=== PATIENT | female | born 1970 | race Caucasian/White ===

== ENCOUNTER 2017-01-23 09:49 | Emergency (ER) | payer BC, OTHER, SELFPAY ==
[~2017-01-23] VITALS: Ht 172.7 cm; Wt 55.8 kg
[~2017-01-23 09:49] MED LIST: /MELO7TA PO; AMPI500C8 PO; BACITAB PO; CLIN300C OR; CLIN300C PO; CLINDAMYCIN IV; CLINDAMYCIN PO; IBUP600T26 OR; LORTTAB5 PO; MOTR200T4 PO; NICO21DI4 TD; PERC5TAB8 OR; PRED10TA2 OR; VICO5TAB16 PO
[2017-01-23] MEDS ORDERED: BUSP1TAB PO (09:59)
[2017-01-23] MEDS ORDERED: TYLE325T5 PO (09:59)
[2017-01-23] MEDS ORDERED: LORazepam 2 MG/ML VIAL (J2060) IV STA (11:01)
[2017-01-23] MEDS ORDERED: METOCLOPRAMIDE INJ 10MG/2ML VIAL (J2765) IV ONE (11:15)
[2017-01-23 13:19] VITALS: BP 113/71
== END 2017-01-23 13:26 | disposition home or self-care (01) ==
LOC: M ED 11:01
DX: F41.9 Anxiety disorder, unspecified (principal)
CPT/HCPCS: 96374; 96375; 99284; J2060; J2765

== ENCOUNTER 2017-08-05 06:57 | Emergency (ER) | payer BC, MEDICAID, OTHER, SELFPAY ==
[~2017-08-05] VITALS: Ht 172.7 cm; Wt 58.6 kg
[~2017-08-05 06:57] MED LIST changes: +BUSP1TAB PO; +TYLE325T5 PO
[2017-08-05] MEDS ORDERED: ONDANSETRON 4 MG ORAL DISINTEGRATING TAB (S0181) PO ONE (07:45)
--- NOTE | 2017-08-05 08:15 | REP ---
Noncontrast head CT: History: Headache and confusion. The patient on anticoagulation. Comparison study: December 02, 2006. Findings: Digital lateral manager marketing communication radiograph is unremarkable. Bone window settings demonstrate an intact bony calvarium. Visualized paranasal sinuses are clear. No intraorbital abnormality is seen. On soft tissue window settings, lateral, third, and fourth ventricles are normal in size and position. Edwards-white differentiation pattern is intact. There is no evidence of intracranial hemorrhage. No mass, infarct, extra-axial fluid collection or midline shift is seen. Impression: Unremarkable noncontrast head CT.. Signed by Richie Curtis MD 08/05/2017 08:06 A
[2017-08-05] MEDS ORDERED: LORazepam 1 MG TAB PO STA (08:18)
[2017-08-05] MEDS ORDERED: ACETAMINOPHEN 325 MG TAB PO ONE (08:30)
[2017-08-05 08:45] LABS: BASO % 0.3 % (0.0-1.0); EOS % 0.2 % (0.0-3.0); IMMATURE GRANULOCYTE % 0.5 % (0-0); LYMPH # 0.6 10^3/uL (1.5-4.5); MEAN CORPUSCULAR HGB CONC 34.2 g/dl (32.0-36.5); MEAN CORPUSCULAR VOLUME 99.5 fl (80.0-96.0); MONO # 0.6 10^3/uL (0.0-0.8); MONO % 9.5 % (0.0-5.0); NEUTROPHILS # 5.4 10^3/uL (1.8-7.7); NEUTROPHILS % 80.5 % (36.0-66.0); PLATELET COUNT, AUTOMATED 119 10^3/uL (150-450); RED CELL DISTRIBUTION WIDTH 12.1 % (11.5-14.5); WHITE BLOOD COUNT 6.7 10^3/uL (4.0-10.0)
[2017-08-05 09:11] LABS: ALBUMIN 3.3 GM/DL (3.2-5.2); ALKALINE PHOSPHATASE 133 U/L (45-117); ALT/SGPT 149 U/L (12-78); ANION GAP 8 MEQ/L (8-16); AST/SGOT 128 U/L (7-37); BILIRUBIN,DIRECT 0.2 MG/DL (0.0-0.2); BILIRUBIN,TOTAL 0.7 MG/DL (0.2-1.0); BLOOD UREA NITROGEN 4 MG/DL (7-18); CALCIUM LEVEL 8.5 MG/DL (8.5-10.1); CARBON DIOXIDE LEVEL 25 MEQ/L (21-32); CHLORIDE LEVEL 103 MEQ/L (98-107); CREATININE FOR GFR 0.48 MG/DL (0.55-1.02); GLOMERULAR FILTRATION RATE > 60.0 (>58); GLUCOSE, FASTING 93 MG/DL (70-105); POTASSIUM SERUM 4.2 MEQ/L (3.5-5.1); SODIUM LEVEL 136 MEQ/L (136-145); T UPTAKE 40 % (30-39); THYROXINE (T4) 6.3 UG/DL (4.5-12.0)
[2017-08-05 09:12] LABS: METHADONE URINE NEGATIVE (NEGATIVE)
--- NOTE | 2017-08-05 11:10 | REP ---
Right upper quadrant sonography: History: Increased liver function studies. Alcohol use. Comparison study: Comparison CT study September 13, 2013. Findings: Scanning through the right upper quadrant of the abdomen demonstrates a normal sized, thin-walled gallbladder without evidence of stone or polyp. Common bile duct is normal measuring 0.3 cm in greatest diameter. No focal liver lesion is seen. Liver size is normal. There is evidence of mild fatty infiltration diffusely. No pancreatic abnormality is observed. No right renal abnormality is seen. There is no evidence of ascites. The right kidney measures 11.7 x 3.5 x 5.3 cm. Impression: Mild fatty infiltration of the liver seen, otherwise negative right upper quadrant sonography. Signed by Richie Curtis MD 08/05/2017 11:01 A
[2017-08-05] MEDS ORDERED: ATIV1TAB10 PO (11:58)
[2017-08-05 12:18] VITALS: BP 133/82
== END 2017-08-05 12:19 | disposition home or self-care (01) ==
LOC: M ED 06:57
DX: F41.0 Panic disorder [episodic paroxysmal anxiety] (principal); K76.0 Fatty (change of) liver, not elsewhere classified; F10.20 Alcohol dependence, uncomplicated; Z88.1 Allergy status to other antibiotic agents; L23.1 Allergic contact dermatitis due to adhesives; F17.210 Nicotine dependence, cigarettes, uncomplicated

== ENCOUNTER → 2017-10-25 | Outpatient (CLI) | payer OTHER ==
[2017-10-25 14:41] LABS: BASO % 0.4 % (0.0-1.0); EOS # 0.1 10^3/uL (0.0-0.50); EOS % 2.5 % (0.0-3.0); HEMATOCRIT 45.3 % (36.0-47.0); HEMOGLOBIN 15.6 g/dl (12.0-16.0); IMMATURE GRANULOCYTE % 0.4 % (0-0); LYMPH % 35.3 % (24.0-44.0); MEAN CORPUSCULAR HEMOGLOBIN 34.3 pg (27.0-33.0); MEAN CORPUSCULAR HGB CONC 34.4 g/dl (32.0-36.5); MEAN CORPUSCULAR VOLUME 99.6 fl (80.0-96.0); MONO # 0.4 10^3/uL (0.0-0.8); MONO % 12.7 % (0.0-5.0); NEUTROPHILS # 1.4 10^3/uL (1.8-7.7); NEUTROPHILS % 48.7 % (36.0-66.0); PLATELET COUNT, AUTOMATED 121 10^3/uL (150-450); RED BLOOD COUNT 4.55 10^6/uL (4.00-5.40); RED CELL DISTRIBUTION WIDTH 11.9 % (11.5-14.5); WHITE BLOOD COUNT 2.8 10^3/uL (4.0-10.0)
[2017-10-25 15:21] LABS: ALBUMIN 3.3 GM/DL (3.2-5.2); ALBUMIN/GLOBULIN RATIO 0.67 (1.00-1.93); ALKALINE PHOSPHATASE 143 U/L (45-117); ALT/SGPT 265 U/L (12-78); ANION GAP 7 MEQ/L (8-16); AST/SGOT 336 U/L (7-37); BILIRUBIN,DIRECT 0.2 MG/DL (0.0-0.2); BILIRUBIN,TOTAL 0.4 MG/DL (0.2-1.0); BLOOD UREA NITROGEN 3 MG/DL (7-18); C REACTIVE PROTEIN QUANTITATIV < 0.30 MG/DL (0.00-0.30); CALCIUM LEVEL 8.6 MG/DL (8.5-10.1); CARBON DIOXIDE LEVEL 28 MEQ/L (21-32); CHLORIDE LEVEL 108 MEQ/L (98-107); GLOMERULAR FILTRATION RATE > 60.0 (>58); GLUCOSE, FASTING 85 MG/DL (70-105); POTASSIUM SERUM 3.9 MEQ/L (3.5-5.1); SODIUM LEVEL 143 MEQ/L (136-145); TOTAL PROTEIN 8.2 GM/DL (6.4-8.2)
[2017-10-26 14:11] LABS: ANTINUCLEAR ANTIBODIES DIRECT Negative (Negative)
[2017-10-26 16:48] LABS: FREE T4 0.88 NG/DL (0.76-1.46)
[2017-10-27 09:46] LABS: HEPATITIS B SURFACE ANTIGEN NEGATIVE (NEGATIVE)
[2017-10-27 09:54] LABS: HEPATITIS B SURFACE ANTIBODY NEGATIVE (POSITIVE)
[2017-10-27 10:12] LABS: HEPATITIS C VIRUS ABY INDEX 0.2 INDEX (<0.8)
[2017-10-27 10:14] LABS: HEPATITIS A ANTIBODY IGM NEGATIVE (NEGATIVE)
[2017-11-02 11:01] LABS: FIBROSPECT1 SEE SEPARATE REPORT
== END ==
LOC: M LAB 14:02
DX: R94.5 Abnormal results of liver function studies (principal)
CPT/HCPCS: 82248

== ENCOUNTER → 2017-12-08 | Outpatient (CLI) | payer OTHER ==
[2017-12-08 15:12] LABS: BASO % 0.3 % (0.0-1.0); EOS % 0.8 % (0.0-3.0); HEMATOCRIT 45.7 % (36.0-47.0); HEMOGLOBIN 15.9 g/dl (12.0-16.0); IMMATURE GRANULOCYTE % 0.3 % (0-3.0); LYMPH # 0.8 10^3/uL (1.5-4.5); LYMPH % 22.1 % (24.0-44.0); MEAN CORPUSCULAR HEMOGLOBIN 33.9 pg (27.0-33.0); MEAN CORPUSCULAR HGB CONC 34.8 g/dl (32.0-36.5); MEAN CORPUSCULAR VOLUME 97.4 fl (80.0-96.0); MONO # 0.5 10^3/uL (0.0-0.8); MONO % 13.7 % (0.0-5.0); NEUTROPHILS # 2.4 10^3/uL (1.8-7.7); NEUTROPHILS % 62.8 % (36.0-66.0); PLATELET COUNT, AUTOMATED 141 10^3/uL (150-450); RED BLOOD COUNT 4.69 10^6/uL (4.00-5.40); RED CELL DISTRIBUTION WIDTH 11.7 % (11.5-14.5); WHITE BLOOD COUNT 3.8 10^3/uL (4.0-10.0)
[2017-12-08 15:22] LABS: INR 0.93; PARTIAL THROMBOPLASTIN TIME 36.1 SECONDS (26.8-37.9); PROTHROMBIN TIME 12.5 SECONDS (12.4-14.5)
[2017-12-08 15:39] LABS: ALBUMIN 3.7 GM/DL (3.2-5.2); ALBUMIN/GLOBULIN RATIO 0.76 (1.00-1.93); ALKALINE PHOSPHATASE 118 U/L (45-117); ALT/SGPT 62 U/L (12-78); ANION GAP 5 MEQ/L (8-16); AST/SGOT 64 U/L (7-37); BILIRUBIN,TOTAL 0.7 MG/DL (0.2-1.0); BLOOD UREA NITROGEN 6 MG/DL (7-18); CALCIUM LEVEL 8.9 MG/DL (8.5-10.1); CARBON DIOXIDE LEVEL 32 MEQ/L (21-32); CHLORIDE LEVEL 99 MEQ/L (98-107); CREATININE FOR GFR 0.56 MG/DL (0.55-1.30); FERRITIN 354 NG/ML (8-252); GLOMERULAR FILTRATION RATE > 60.0 (>58); GLUCOSE, FASTING 67 MG/DL (70-100); IRON (FE) 184 UG/DL (50-170); PERCENT SATURATION 66.2 % (13.2-45.0); POTASSIUM SERUM 4.4 MEQ/L (3.5-5.1); SODIUM LEVEL 136 MEQ/L (136-145); TOTAL IRON BINDING CAPACITY 278 UG/DL (250-450); TOTAL PROTEIN 8.6 GM/DL (6.4-8.2)
[2017-12-10 00:07] LABS: ANTI-MITOCHONDRIAL ANTIBODY 1.6 Units (0.0-20.0)
== END ==
LOC: M LAB 14:18
DX: R94.5 Abnormal results of liver function studies (principal)
CPT/HCPCS: 83550

== ENCOUNTER → 2017-12-26 | Outpatient (CLI) | payer OTHER ==
[~2017-12-26] MED LIST changes: -/MELO7TA PO; -AMPI500C8 PO; -BACITAB PO; -BUSP1TAB PO; -CLIN300C OR; -CLIN300C PO; -CLINDAMYCIN IV; -CLINDAMYCIN PO; -IBUP600T26 OR; +LIDOCAINE 1% MDV 20ML VIAL As Ordered; -LORTTAB5 PO; -MOTR200T4 PO; -NICO21DI4 TD; -PERC5TAB8 OR; -PRED10TA2 OR; -TYLE325T5 PO; -VICO5TAB16 PO
== END ==
LOC: M RADPRO 09:28
DX: R94.5 Abnormal results of liver function studies (principal); K76.0 Fatty (change of) liver, not elsewhere classified; K75.89 Other specified inflammatory liver diseases; Z88.1 Allergy status to other antibiotic agents; Z91.048 Other nonmedicinal substance allergy status; Z79.899 Other long term (current) drug therapy
CPT/HCPCS: 47000

== ENCOUNTER 2018-01-31 10:28 | Emergency (ER) | payer OTHER, MEDICAID ==
[2018-01-31] MEDS: PERCOCET 5MG/325MG TAB PO (10:54)
== END 2018-01-31 11:52 | disposition home or self-care (01) ==
LOC: M ED 10:28
DX: S22.32XA Fracture of one rib, left side, initial encounter for closed fracture (principal); W01.10XA Fall on same level from slipping, tripping and stumbling with subsequent striking against unspecified object, initial encounter; Y92.099 Unspecified place in other non-institutional residence as the place of occurrence of the external cause; Y93.02 Activity, running; Y99.9 Unspecified external cause status; Z87.81 Personal history of (healed) traumatic fracture; F41.9 Anxiety disorder, unspecified; F17.200 Nicotine dependence, unspecified, uncomplicated; Z79.899 Other long term (current) drug therapy; Z88.8 Allergy status to other drugs, medicaments and biological substances; Z91.89 Other specified personal risk factors, not elsewhere classified
CPT/HCPCS: 71101

== ENCOUNTER → 2018-07-13 | Outpatient (CLI) | payer OTHER ==
[2018-07-13 08:37] LABS: BASO % 0.4 % (0.0-1.0); EOS # 0.1 10^3/uL (0.0-0.50); HEMOGLOBIN 13.9 g/dl (12.0-15.5); IMMATURE GRANULOCYTE % 0.4 % (0-3.0); LYMPH # 0.4 10^3/uL (1.5-4.5); LYMPH % 17.9 % (24.0-44.0); MEAN CORPUSCULAR HEMOGLOBIN 33.2 pg (27.0-33.0); MEAN CORPUSCULAR HGB CONC 33.9 g/dl (32.0-36.5); MEAN CORPUSCULAR VOLUME 97.9 fl (80.0-96.0); MONO # 0.3 10^3/uL (0.0-0.8); MONO % 14.8 % (0.0-5.0); NEUTROPHILS # 1.4 10^3/uL (1.8-7.7); NEUTROPHILS % 62.5 % (36.0-66.0); PLATELET COUNT, AUTOMATED 132 10^3/uL (150-450); RED BLOOD COUNT 4.19 10^6/uL (4.00-5.40); RED CELL DISTRIBUTION WIDTH 12.1 % (11.5-14.5); WHITE BLOOD COUNT 2.2 10^3/uL (4.0-10.0)
[2018-07-13 08:58] LABS: ALBUMIN 3.1 GM/DL (3.2-5.2); ALBUMIN/GLOBULIN RATIO 0.74 (1.00-1.93); ALKALINE PHOSPHATASE 78 U/L (45-117); ALT/SGPT 27 U/L (12-78); ANION GAP 5 MEQ/L (8-16); AST/SGOT 26 U/L (7-37); BILIRUBIN,TOTAL 0.4 MG/DL (0.2-1.0); BLOOD UREA NITROGEN 7 MG/DL (7-18); CALCIUM LEVEL 8.9 MG/DL (8.5-10.1); CARBON DIOXIDE LEVEL 30 MEQ/L (21-32); CHLORIDE LEVEL 104 MEQ/L (98-107); CREATININE FOR GFR 0.68 MG/DL (0.55-1.30); GLOMERULAR FILTRATION RATE > 60.0 (>58); GLUCOSE, FASTING 75 MG/DL (70-100); POTASSIUM SERUM 4.7 MEQ/L (3.5-5.1); SODIUM LEVEL 139 MEQ/L (136-145); TOTAL PROTEIN 7.3 GM/DL (6.4-8.2)
== END ==
LOC: M RAD 08:03
DX: K75.81 Nonalcoholic steatohepatitis (NASH) (principal); K82.4 Cholesterolosis of gallbladder
CPT/HCPCS: 76705

== ENCOUNTER → 2018-08-20 | Outpatient (CLI) | payer OTHER ==
[2018-08-20 14:48] LABS: APPEARANCE, URINE HAZY (CLEAR); BACTERIA, URINE AUTO NEGATIVE (NEGATIVE); BILIRUBIN, URINE AUTO NEGATIVE (NEGATIVE); BLOOD, URINE BLOOD NEGATIVE (NEGATIVE); COLOR, URINE YELLOW (YELLOW); EOS % 1.5 % (0.0-3.0); GLUCOSE, URINE (UA) AUTO NEGATIVE (NEGATIVE); HEMATOCRIT 42.1 % (36.0-47.0); HEMOGLOBIN 14.4 g/dl (12.0-15.5); IMMATURE GRANULOCYTE % 0.7 % (0-3.0); KETONE, URINE AUTO NEGATIVE (NEGATIVE); LEUKOCYTE ESTERASE, URINE AUTO NEGATIVE (NEGATIVE); LYMPH # 0.4 10^3/uL (1.5-4.5); LYMPH % 32.6 % (24.0-44.0); MEAN CORPUSCULAR HEMOGLOBIN 34.3 pg (27.0-33.0); MEAN CORPUSCULAR HGB CONC 34.2 g/dl (32.0-36.5); MEAN CORPUSCULAR VOLUME 100.2 fl (80.0-96.0); MONO # 0.2 10^3/uL (0.0-0.8); MONO % 16.3 % (0.0-5.0); MUCUS, URINE SMALL (NEGATIVE); NEUTROPHILS % 48.9 % (36.0-66.0); NITRITE, URINE AUTO NEGATIVE (NEGATIVE); PROTEIN, URINE AUTO NEGATIVE (NEGATIVE); RBC, URINE AUTO 0 /HPF (0-3); RED CELL DISTRIBUTION WIDTH 13.4 % (11.5-14.5); SPECIFIC GRAVITY URINE AUTO 1.009 (1.002-1.035); SQUAMOUS EPITHELIAL CELL UR AU 6 /HPF (0-6); UROBILINOGEN, URINE AUTO 0.2 mg/dL (0.0-2.0); WBC, URINE AUTO 2 /HPF (0-3)
[2018-08-20 14:57] LABS: IMMATURE PLATELET FRACTION % 6.3 % (0.0-9.6); NEUTROPHILS # 0.7 10^3/uL (1.8-7.7); PLATELET COUNT, AUTOMATED 91 10^3/uL (150-450); POS COUNT POS FLAG; POSITIVE DIFF POS FLAG; REASON FOR REVIEW WBC/LEUKEMIA/BLAST; SLIDE REVIEW Report; SOURCE PERIPHERAL SMEAR; WHITE BLOOD COUNT 1.4 10^3/uL (4.0-10.0)
[2018-08-20 15:05] LABS: ERYTHROCYTE SEDIMENTATION RATE 29 mm/hr (0-20)
[2018-08-20 15:16] LABS: C REACTIVE PROTEIN QUANTITATIV < 0.30 MG/DL (0.00-0.30); FERRITIN 344 NG/ML (8-252); FREE T3 2.5 PG/ML (2.2-4.0); FREE T4 0.77 NG/DL (0.76-1.46)
[2018-08-20 15:16] LABS: IRON (FE) 151 UG/DL (50-170)
[2018-08-20 15:18] LABS: FOLATE 8.6 NG/ML (>5.4); VITAMIN B12 LEVEL 482 PG/ML (247-911)
== END ==
LOC: M LAB 11:52
DX: R63.4 Abnormal weight loss (principal); D72.9 Disorder of white blood cells, unspecified; Z13.0 Encounter for screening for diseases of the blood and blood-forming organs and certain disorders involving the immune mechanism
CPT/HCPCS: 82746

== ENCOUNTER → 2018-08-29 | Outpatient (CLI) | payer OTHER | LOC: M RAD 07:41 | DX: F17.200 Nicotine dependence, unspecified, uncomplicated (principal); R63.4 Abnormal weight loss; K76.0 Fatty (change of) liver, not elsewhere classified; K82.4 Cholesterolosis of gallbladder | CPT/HCPCS: 71046 ==

== ENCOUNTER → 2018-09-19 | Outpatient (CLI) | payer OTHER | LOC: M LAB 12:33 | DX: D72.819 Decreased white blood cell count, unspecified (principal); D69.6 Thrombocytopenia, unspecified ==

== ENCOUNTER → 2018-09-20 | Outpatient (REF) | payer OTHER ==
[2018-09-20 16:09] LABS: ALBUMIN 3.3 GM/DL (3.2-5.2); ALBUMIN/GLOBULIN RATIO 0.79 (1.00-1.93); ALKALINE PHOSPHATASE 123 U/L (45-117); ALT/SGPT 147 U/L (12-78); ANION GAP 8 MEQ/L (8-16); AST/SGOT 180 U/L (7-37); BILIRUBIN,TOTAL 0.7 MG/DL (0.2-1.0); BLOOD UREA NITROGEN 5 MG/DL (7-18); CALCIUM LEVEL 8.1 MG/DL (8.5-10.1); CARBON DIOXIDE LEVEL 27 MEQ/L (21-32); CHLORIDE LEVEL 102 MEQ/L (98-107); CREATININE FOR GFR 0.51 MG/DL (0.55-1.30); GLOMERULAR FILTRATION RATE > 60.0 (>58); GLUCOSE, FASTING 80 MG/DL (70-100); POTASSIUM SERUM 3.6 MEQ/L (3.5-5.1); SODIUM LEVEL 137 MEQ/L (136-145); TOTAL PROTEIN 7.5 GM/DL (6.4-8.2)
== END ==
LOC: M SFHCPLAZ 13:15
DX: B20 Human immunodeficiency virus [HIV] disease (principal)
CPT/HCPCS: 80053

== ENCOUNTER → 2018-09-24 | Outpatient (REF) | payer OTHER ==
[~2018-09-24] MED LIST changes: +/MELO7TA PO; +AMBI5TAB PO; +AMPI500C8 PO; +ATIV1TAB10 PO; +ATIV1TAB7 PO; +BACITAB PO; +BUSP1TAB PO; +CELE20TA PO; +CLIN300C OR; +CLIN300C PO; +CLINDAMYCIN IV; +CLINDAMYCIN PO; +IBUP600T26 OR; -LIDOCAINE 1% MDV 20ML VIAL As Ordered; +LORA10CA PO; +LORTTAB5 PO; +MOTR200T4 PO; +NICO21DI4 TD; +OXYC1TAB23 PO; +PERC5TAB8 OR; +PRED10TA2 OR; +TOPI50TA9 PO; +TYLE325T5 PO; +VICO5TAB16 PO
[2018-09-24 18:37] LABS: APPEARANCE, URINE HAZY (CLEAR); BACTERIA, URINE AUTO NEGATIVE (NEGATIVE); BILIRUBIN, URINE AUTO NEGATIVE (NEGATIVE); BLOOD, URINE BLOOD NEGATIVE (NEGATIVE); COLOR, URINE YELLOW (YELLOW); GLUCOSE, URINE (UA) AUTO NEGATIVE (NEGATIVE); KETONE, URINE AUTO NEGATIVE (NEGATIVE); LEUKOCYTE ESTERASE, URINE AUTO NEGATIVE (NEGATIVE); NITRITE, URINE AUTO NEGATIVE (NEGATIVE); PROTEIN, URINE AUTO NEGATIVE (NEGATIVE); RBC, URINE AUTO 0 /HPF (0-3); SPECIFIC GRAVITY URINE AUTO 1.001 (1.002-1.035); SQUAMOUS EPITHELIAL CELL UR AU 2 /HPF (0-6); UROBILINOGEN, URINE AUTO 0.2 mg/dL (0.0-2.0); WBC, URINE AUTO 0 /HPF (0-3)
== END ==
LOC: M SFHCPLAZ 15:54
PROVIDERS: ATTEND Internal Medicine Infectious Disease
DX: B20 Human immunodeficiency virus [HIV] disease (principal)

== ENCOUNTER → 2018-10-18 | Outpatient (REF) | payer OTHER ==
[2018-10-18 16:06] LABS: ALBUMIN 3.6 GM/DL (3.2-5.2); ALT/SGPT 42 U/L (12-78); BILIRUBIN,TOTAL 0.5 MG/DL (0.2-1.0); BLOOD UREA NITROGEN 5 MG/DL (7-18); CARBON DIOXIDE LEVEL 30 MEQ/L (21-32); CHLORIDE LEVEL 103 MEQ/L (98-107); CREATININE FOR GFR 0.76 MG/DL (0.55-1.30); GLOMERULAR FILTRATION RATE > 60.0 (>58); GLUCOSE, FASTING 79 MG/DL (70-100); POTASSIUM SERUM 4.3 MEQ/L (3.5-5.1); SODIUM LEVEL 136 MEQ/L (136-145); TOTAL PROTEIN 7.6 GM/DL (6.4-8.2)
[2018-10-18 16:14] LABS: PROLACTIN 4.1 NG/ML
[2018-10-24 00:09] LABS: % CD8 Pos Lymph 70.6 % (12.0-35.5); %CD4 Pos Lymphs 13.9 % (30.8-58.5); ABS Lymphs 0.8 x10E3/uL (0.7-3.1); ABS Monocytes 0.3 x10E3/uL (0.1-0.9); ABS Neutophils 1.8 x10E3/uL (1.4-7.0); Abs CD4 Helper 111 /uL (359-1519); Abs CD8 Suppres 565 /uL (109-897); CRYPTOCOCCUS ANTIGEN SER Negative (Negative); Eosinophils 1 % (Not Estab.); HCT 43.4 % (34.0-46.6); HGB 14.6 g/dL (11.1-15.9); HISTOPLASMA GAL'MANNAN AG UR <0.5 (<0.5 ng/mL); HIV-1 RNA PCR QUANT 2 LC550285 150 copies/mL (.); HIV-1 RNA PCR QUANT 3 LC550285 2.176 (.); Immature Grans 0 % (Not Estab.); Lymphocytes 26 % (Not Estab.); MCH 36.1 pg (26.6-33.0); MCHC 33.6 g/dL (31.5-35.7); MCV 107 fL (79-97); Monocytes 9 % (Not Estab.); Neutrophils 64 % (Not Estab.); Platelets 231 x10E3/uL (150-379); RBC 4.04 x10E6/uL (3.77-5.28); WBC 2.9 x10E3/uL (3.4-10.8)
== END ==
LOC: M SFHCPLAZ 13:17
PROVIDERS: ATTEND Internal Medicine Infectious Disease
DX: R61 Generalized hyperhidrosis (principal); B20 Human immunodeficiency virus [HIV] disease; Z12.31 Encounter for screening mammogram for malignant neoplasm of breast

== ENCOUNTER → 2018-11-14 | Outpatient (CLI) | payer OTHER, MEDICAID ==
--- NOTE | 2018-11-15 03:43 | REP ---
Clinical: High risk factors/nicotine dependence with night sweats . Comparison: 08/29/2018 . Technique: PA and lateral. Findings: The mediastinum and cardiac silhouette are normal. The lung hamilton are clear and without acute consolidation, effusion, or pneumothorax. The skeletal structures are intact and normal. Impression: 1. No acute cardiopulmonary process. Electronically Signed by Rob Ellsworth MD 11/15/2018 03:35 A
== END ==
LOC: M LRY 11:48
PROVIDERS: ATTEND Internal Medicine Infectious Disease
DX: R61 Generalized hyperhidrosis (principal); F17.210 Nicotine dependence, cigarettes, uncomplicated

== ENCOUNTER → 2018-11-22 | Outpatient (REF) | payer OTHER ==
[2018-11-22 16:54] LABS: ALBUMIN 3.8 GM/DL (3.2-5.2); ALT/SGPT 39 U/L (12-78); BILIRUBIN,TOTAL 0.5 MG/DL (0.2-1.0); BLOOD UREA NITROGEN 8 MG/DL (7-18); CARBON DIOXIDE LEVEL 29 MEQ/L (21-32); CHLORIDE LEVEL 99 MEQ/L (98-107); CREATININE FOR GFR 0.73 MG/DL (0.55-1.30); GLOMERULAR FILTRATION RATE > 60.0 (>58); GLUCOSE, FASTING 88 MG/DL (70-100); POTASSIUM SERUM 4.3 MEQ/L (3.5-5.1); SODIUM LEVEL 135 MEQ/L (136-145); TOTAL PROTEIN 7.6 GM/DL (6.4-8.2)
[2018-11-28 00:07] LABS: % CD8 Pos Lymph 78.5 % (12.0-35.5); %CD4 Pos Lymphs 10.6 % (30.8-58.5); ABS Eosinophils 0.1 x10E3/uL (0.0-0.4); ABS Lymphs 1.2 x10E3/uL (0.7-3.1); ABS Monocytes 0.4 x10E3/uL (0.1-0.9); ABS Neutophils 1.4 x10E3/uL (1.4-7.0); Abs CD4 Helper 127 /uL (359-1519); Abs CD8 Suppres 942 /uL (109-897); CD4/CD8 Ratio 0.14 (0.92-3.72); Eosinophils 2 % (Not Estab.); HCT 44.2 % (34.0-46.6); HGB 15.2 g/dL (11.1-15.9); HIV-1 RNA PCR QUANT 2 LC550285 70 copies/mL (.); HIV-1 RNA PCR QUANT 3 LC550285 1.845 (.); Immature Grans 0 % (Not Estab.); Lymphocytes 38 % (Not Estab.); MCHC 34.4 g/dL (31.5-35.7); MCV 105 fL (79-97); Monocytes 12 % (Not Estab.); Neutrophils 47 % (Not Estab.); Platelets 204 x10E3/uL (150-379); RBC 4.22 x10E6/uL (3.77-5.28); RDW 12.5 % (12.3-15.4); WBC 3.1 x10E3/uL (3.4-10.8)
== END ==
LOC: M SFHCPLAZ 13:25
PROVIDERS: ATTEND Internal Medicine Infectious Disease
DX: B20 Human immunodeficiency virus [HIV] disease (principal)

== ENCOUNTER → 2019-01-11 | Outpatient (CLI) | payer OTHER, MEDICAID ==
[~2019-01-11] MED LIST changes: -/MELO7TA PO; +MOBI4TAB PO
[2019-01-11 12:47] LABS: BASO % 0.4 % (0.0-1.0); EOS # 0.1 10^3/uL (0.0-0.50); EOS % 1.4 % (0.0-3.0); HEMOGLOBIN 14.1 g/dl (12.0-15.5); LYMPH # 1.3 10^3/uL (1.5-4.5); LYMPH % 26.1 % (24.0-44.0); MEAN CORPUSCULAR HEMOGLOBIN 35.4 pg (27.0-33.0); MEAN CORPUSCULAR HGB CONC 33.6 g/dl (32.0-36.5); MEAN CORPUSCULAR VOLUME 105.5 fl (80.0-96.0); MONO # 0.5 10^3/uL (0.0-0.8); MONO % 9.8 % (0.0-5.0); NEUTROPHILS # 3.1 10^3/uL (1.8-7.7); NEUTROPHILS % 61.9 % (36.0-66.0); PLATELET COUNT, AUTOMATED 155 10^3/uL (150-450); RED BLOOD COUNT 3.98 10^6/uL (4.00-5.40)
[2019-01-11 13:31] LABS: ALBUMIN 3.5 GM/DL (3.2-5.2); ALT/SGPT 36 U/L (12-78); BILIRUBIN,TOTAL 0.6 MG/DL (0.2-1.0); BLOOD UREA NITROGEN 5 MG/DL (7-18); CALCIUM LEVEL 8.4 MG/DL (8.5-10.1); CARBON DIOXIDE LEVEL 25 MEQ/L (21-32); CHLORIDE LEVEL 105 MEQ/L (98-107); CREATININE FOR GFR 0.58 MG/DL (0.55-1.30); GLOMERULAR FILTRATION RATE > 60.0 (>58); GLUCOSE, FASTING 70 MG/DL (70-100); POTASSIUM SERUM 3.8 MEQ/L (3.5-5.1); SODIUM LEVEL 137 MEQ/L (136-145); TOTAL PROTEIN 6.8 GM/DL (6.4-8.2)
== END ==
LOC: M LAB 11:22
PROVIDERS: ATTEND Internal Medicine Gastroenterology
DX: K75.81 Nonalcoholic steatohepatitis (NASH) (principal)

== ENCOUNTER → 2019-01-14 | Outpatient (CLI) | payer OTHER ==
--- NOTE | 2019-01-14 08:50 | REP ---
Abdominal right upper quadrant ultrasound for nonalcoholic hepato steatosis: There is no cholelithiasis, gallbladder wall thickening or pericholecystic fluid. There is no intrahepatic or extrahepatic biliary duct dilatation. The common biliary duct measures up to 4.9 mm in diameter. The hepatic parenchyma is homogeneous and otherwise unremarkable. No evidence of increased hepatic parenchymal echogenicity. There are no hepatic masses. The visualized hepatic parenchyma is unremarkable. There is no right renal calculus, hydronephrosis, mass or cyst. The right kidney measures 9.9 x 4.1 x 4.7 cm and is normal size. There is no right upper quadrant abdominal ascites. Impression: Essentially negative abdominal right upper quadrant ultrasound. Electronically Signed by Roldan Camacho MD 01/14/2019 08:41 A
== END ==
LOC: M RAD 07:33
PROVIDERS: ATTEND Internal Medicine Gastroenterology
DX: K75.81 Nonalcoholic steatohepatitis (NASH) (principal)

== ENCOUNTER → 2019-02-12 | Outpatient (REF) | payer OTHER ==
[2019-02-12 16:57] LABS: ALBUMIN 3.9 GM/DL (3.2-5.2); ALT/SGPT 20 U/L (12-78); BILIRUBIN,TOTAL 0.5 MG/DL (0.2-1.0); BLOOD UREA NITROGEN 5 MG/DL (7-18); CARBON DIOXIDE LEVEL 28 MEQ/L (21-32); CHLORIDE LEVEL 103 MEQ/L (98-107); CREATININE FOR GFR 0.69 MG/DL (0.55-1.30); GLOMERULAR FILTRATION RATE > 60.0 (>58); GLUCOSE, FASTING 83 MG/DL (70-100); SODIUM LEVEL 136 MEQ/L (136-145); TOTAL PROTEIN 7.4 GM/DL (6.4-8.2)
[2019-02-14 14:27] LABS: % CD8 Pos Lymph 77.5 % (12.0-35.5); %CD4 Pos Lymphs 10.5 % (30.8-58.5); ABS Eosinophils 0.1 x10E3/uL (0.0-0.4); ABS Lymphs 1.3 x10E3/uL (0.7-3.1); ABS Monocytes 0.4 x10E3/uL (0.1-0.9); ABS Neutophils 3.9 x10E3/uL (1.4-7.0); Abs CD4 Helper 137 /uL (359-1519); Abs CD8 Suppres 1008 /uL (109-897); CD4/CD8 Ratio 0.14 (0.92-3.72); Eosinophils 1 % (Not Estab.); HCT 41.8 % (34.0-46.6); HGB 14.1 g/dL (11.1-15.9); Immature Grans 0 % (Not Estab.); Lymphocytes 23 % (Not Estab.); MCH 35.8 pg (26.6-33.0); MCHC 33.7 g/dL (31.5-35.7); MCV 106 fL (79-97); Monocytes 6 % (Not Estab.); Neutrophils 70 % (Not Estab.); Platelets 254 x10E3/uL (150-379); RBC 3.94 x10E6/uL (3.77-5.28); RDW 13.2 % (12.3-15.4); WBC 5.7 x10E3/uL (3.4-10.8)
[2019-02-15 18:47] LABS: HIV-1 RNA PCR QUANT 2 LC550285 <20 copies/mL (.)
== END ==
LOC: M SFHCPLAZ 13:49
PROVIDERS: ATTEND Internal Medicine Infectious Disease
DX: B20 Human immunodeficiency virus [HIV] disease (principal)

== ENCOUNTER → 2019-03-01 | Outpatient (CLI) | payer OTHER, MEDICAID ==
--- NOTE | 2019-03-01 12:59 | REP ---
Clinical: Neck pain. Technique: AP, lateral, flexion/extension, bilateral oblique, and open-mouth views of the cervical spine. Findings: Examination appears normal for age. No significant spondylosis is appreciated. Alignment and lordosis maintained. Oblique views demonstrate patent neural foramen. Open mouth view demonstrates normal C1-C2 articulation and odontoid process. No acute fracture / compression injury or subluxation. Impression: Essentially age-appropriate cervical spine radiograph series. If the patient remains symptomatic consider MRI for further investigation. Electronically Signed by Rob Ellsworth MD 03/01/2019 12:50 P
== END ==
LOC: M WUC 11:47
PROVIDERS: ATTEND Internal Medicine Infectious Disease
DX: M54.2 Cervicalgia (principal)

== ENCOUNTER 2019-04-20 16:42 | Inpatient (IN) | payer MEDICAID, OTHER ==
[~2019-04-20] VITALS: Ht 172.7 cm; Wt 57.3 kg
[2019-04-20] MEDS ORDERED: CELE40TA PO (18:09)
[2019-04-20] MEDS ORDERED: ATIV2TAB PO (18:09)
[2019-04-20] MEDS ORDERED: [UNRECOGNIZED DRUG - OTHER] (18:11)
[2019-04-20 18:56] LABS: HEMATOCRIT 43.5 % (36.0-47.0); HEMOGLOBIN 15.2 g/dl (12.0-15.5); MEAN CORPUSCULAR HEMOGLOBIN 37.6 pg (27.0-33.0); MEAN CORPUSCULAR HGB CONC 34.9 g/dl (32.0-36.5); MEAN CORPUSCULAR VOLUME 107.7 fl (80.0-96.0); PLATELET COUNT, AUTOMATED 203 10^3/uL (150-450); RED BLOOD COUNT 4.04 10^6/uL (4.00-5.40); WHITE BLOOD COUNT 3.8 10^3/uL (4.0-10.0)
[2019-04-20 19:19] LABS: HCG, SERUM QUALITATIVE NEGATIVE (NEGATIVE)
[2019-04-20 19:43] LABS: ACETAMINOPHEN LEVEL < 2.0 UG/ML (10.0-30.0); ALBUMIN 3.5 GM/DL (3.2-5.2); ALT/SGPT 35 U/L (12-78); BILIRUBIN,DIRECT 0.1 MG/DL (0.0-0.2); BILIRUBIN,TOTAL 0.2 MG/DL (0.2-1.0); BLOOD UREA NITROGEN 4 MG/DL (7-18); CALCIUM LEVEL 7.9 MG/DL (8.5-10.1); CARBON DIOXIDE LEVEL 30 MEQ/L (21-32); CHLORIDE LEVEL 106 MEQ/L (98-107); CREATININE FOR GFR 0.65 MG/DL (0.55-1.30); GLOMERULAR FILTRATION RATE > 60.0 (>58); GLUCOSE, FASTING 78 MG/DL (70-100); POTASSIUM SERUM 4.3 MEQ/L (3.5-5.1); SALICYLATE LEVEL 6.6 MG/DL (5.0-30.0); SODIUM LEVEL 140 MEQ/L (136-145); TOTAL PROTEIN 7.5 GM/DL (6.4-8.2)
[2019-04-20] MEDS ORDERED: LORazepam 2 MG TAB PO ONE (19:45)
[2019-04-20] MEDS ORDERED: NICOTINE 21MG/24HR 1 EA TRANSDERMAL TD ONE (20:00)
[2019-04-20] MEDS ORDERED: BIKT1TAB PO (20:04)
[2019-04-20 20:47] LABS: AMPHETAMINES LEVEL URINE NEGATIVE (NEGATIVE); BARBITURATES URINE NEGATIVE (NEGATIVE); BENZODIAZEPINES URINE NEGATIVE (NEGATIVE); CANNABINOIDS URINE NEGATIVE (NEGATIVE); COCAINE METABOLITE URINE NEGATIVE (NEGATIVE); METHADONE URINE NEGATIVE (NEGATIVE); OPIATES URINE NEGATIVE (NEGATIVE); PHENCYCLIDINE URINE NEGATIVE (NEGATIVE)
[2019-04-21] MEDS ORDERED: ENTER DRUG NAME HERE (PATIENT'S OWN MED) PO SCH (11:00)
[2019-04-21] MEDS ORDERED: CitaloPRAM (CeleXA) 20 MG TAB PO ONE (11:00)
[2019-04-21] MEDS ORDERED: ACETAMINOPHEN TAB 650MG DOSE (2X325MG) PO ONE (11:00)
[2019-04-21] MEDS ORDERED: LORazepam 1 MG TAB PO ONE ×2 (11:00→14:45)
[2019-04-21] MEDS: BIKTARVY PO SCH (18:14)
[2019-04-21] MEDS ORDERED: diphenhydrAMINE 25 MG CAP PO ONE (20:45)
[2019-04-22] MEDS: BIKTARVY PO SCH (10:42)
[2019-04-22] MEDS ORDERED: LORazepam 1 MG TAB PO STA (10:43)
[2019-04-22] MEDS ORDERED: CitaloPRAM (CeleXA) 20 MG TAB PO ONE ×2 (10:45→11:15)
[2019-04-22] MEDS ORDERED: ACETAMINOPHEN TAB 650MG DOSE (2X325MG) PO PRN (13:00)
[2019-04-22] MEDS ORDERED: MAALOX 30 ML SUSP *UDC PO PRN (13:00)
[2019-04-22] MEDS ORDERED: MOM 30ML SUSPENSION UDC PO PRN (13:00)
[2019-04-22] MEDS ORDERED: AMBI10TA PO (13:34)
[2019-04-22] MEDS ORDERED: ACET1TAB55 PO (13:34)
[2019-04-22] MEDS ORDERED: FLUO0.0119 TOP (13:37)
[2019-04-22] MEDS ORDERED: FLUO0.0118 TOP (13:37)
[2019-04-22 13:44] VITALS: BP 141/82
[2019-04-22] MEDS: LORazepam 2 MG TAB PO SCH (16:28)
--- NOTE | 2019-04-22 16:53 | ECGEPIP ---
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
[2019-04-22] MEDS: NICOTINE 21MG/24HR 1 EA TRANSDERMAL TD PRN (17:32)
[2019-04-22] MEDS: zolPIDEM TARTRATE 5 MG TAB PO PRN (20:48)
--- NOTE | 2019-04-22 23:37 | HPEPDOC ---
General Date of Admission Apr 22, 2019 at 13:00 Date of Service: Apr 22, 2019 Attending Physician: PIOTR ALFARO MD Chief Complaint The patient is a 48-year-old female admitted with a reason for visit of SI. History of Present Illness Leandro is a 48 year old female admitted on account of suicidal ideation. Patient planned to take all her pills and told her children. Children called 911 and she was brought to the emergency room and admitted to inpatient psychiatric unit for further evaluation and management. On assessment, she reports feeling frustrated with current domestic issues. She denies any chest pain, shortness of breath, weakness. She complains of headache which she has from time to time and feels her current headache is due to current significant stressors. Otherwise, denies fever, chills, or any other malaise Home Medications Scheduled Bictegrav/Emtricit/Tenofov Ala (Biktarvy 50-200-25 mg Tablet) 1 Each Tablet, 1 TAB PO DAILY, (Reported) Citalopram Hydrobromide (Celexa) 40 Mg Tablet, 40 MG PO DAILY, (Reported) Fluocinolone/Shower Cap (Fluocinolone 0.01% Scalp Oil) 118.28 Ml Oil, 1 DOSE TOP QHS, (Reported) PATIENT APPLIES TO SCALP Lorazepam (Ativan) 2 Mg Tablet, 2 MG PO DAILY, (Reported) Zolpidem Tartrate (Ambien) 10 Mg Tablet, 5 MG PO QHS, (Reported) RX STATES TO TAKE 1/2 TAB OF 10MG DOSE. PATIENT STATES SHE TAKES 1/2 - 1 TAB DEPENDING ON HOW SHE FEELS. Scheduled PRN Acetaminophen (Acetaminophen) 325 Mg Tablet, 650 MG PO Q4H PRN for PAIN, (Reported) Allergies Coded Allergies: cephalexin (Verified Allergy, Mild, Rash, 02/04/19) ciprofloxacin (Verified Allergy, Mild, Itching, 02/04/19) TAPE (Verified Allergy, Unknown, RASH, 08/05/17) trazodone (Verified Adverse Reaction, Severe, Hallucinations, 02/04/19) Past Medical History Medical History Migraines Depression Anxiety Nicotine dependence Alcohol abuse HIV Surgical History Left shoulder surgery Appendectomy Partial hysterectomy Left breast. Ductectomy Family History Significant Family History: Cancer (breast cancer mother) Social History Smokes half a pack of cigarettes per day, admits to alcohol use, denies polysubstance abuse A-FIB/CHADSVASC A-FIB History Current/History of A-Fib/PAF?: No Current PO Anticoag Therapy: No Review of Systems Other systems A 10 point pertinent review of systems was completed, negative except as stated in the history of presenting illness. Physical Examination Other physical findings GENERAL: NAD SKIN : Warm, dry intact HEENT: Atraumatic, normocephalic, PERRL, moist mucous membrane CARDIOVASCULAR: Regular rate and rhythm, S1S2, no JVD, no edema, distal pulses + and palpable RESP: CTAB, no accessory muscle use noted ABDOMEN: BS+ non distended non tender MS: no joint deformities NEURO: Alert and oriented x 3, CN2-12 grossly intact PSYCH: no anxiety or agitation, appropriate mood and affect. 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
[2019-04-22] MEDS ORDERED: FIORICET TAB PO PRN (23:45)
[2019-04-23 06:51] VITALS: BP 151/84
[2019-04-23] MEDS: LORazepam 2 MG TAB PO SCH (08:08)
[2019-04-23] MEDS: BIKTARVY PO SCH (08:08)
[2019-04-23] MEDS: CitaloPRAM (CeleXA) 20 MG TAB PO SCH (08:08)
[2019-04-23] MEDS: NICOTINE 21MG/24HR 1 EA TRANSDERMAL TD PRN (08:23)
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
[2019-04-23 18:29] VITALS: BP 130/79
[2019-04-23] MEDS: zolPIDEM TARTRATE 5 MG TAB PO PRN (20:23)
[2019-04-24 07:00] VITALS: BP 143/71
[2019-04-24] MEDS: LORazepam 2 MG TAB PO SCH (08:08)
[2019-04-24] MEDS: CitaloPRAM (CeleXA) 20 MG TAB PO SCH (08:08)
[2019-04-24] MEDS: BIKTARVY PO SCH (08:09)
[2019-04-24] MEDS ORDERED: NICO21PAT TD (10:17)
--- NOTE | 2019-04-24 10:33 | MHDSPDOC ---
[facility] Discharge Summary Discharge Summary DATE OF ADMISSION: Apr 22, 2019 at 13:00 DATE OF DISCHARGE: 04/24/19 Discharge Agus Reeves Age 48 Male Date of : 1970 Date of Service: 04/24/2019 Diagnoses Major depressive disorder, recurrent and partial to full remission Generalized anxiety disorder Alcohol use disorder History of Present Illness The patient, a 48 year old woman with a history of anxiety and depression treated by Dr. Samayoa at [facility], presented to the emergency room due to reported suicidal statements made to her daughter after getting into an argument. She has multiple recent psychosocial stressors in the form of recently acquiring HIV and having multiple conflicts with her family members. The patient describes that she does have difficulties with anxiety with excessive worry and at times a little mood, but that currently she has been doing well. She describes that she was fairly intoxicated on the evening in question and that once she had become sober, she no longer felt suicidal. Consultants Involved Hospitalist/PCP screening Treatment and Progress On The Unit The patient was admitted to the unit after being observed in the ER for several days. She reportedly presented with suicidal thoughts while intoxicated. Shortly after she became sober, she redacted any suicidal thoughts and was observed for several days to be demonstrating no concerning signs or symptoms. She was continued on her home medications of Celexa 40 and Ativan 2 mg daily. It was discussed with her that Ativan may not be the ideal choice for her due to a combination of long-term problems with Ativan as well as her alcoholism that could pose a potential lethal threat in combination to her health. She was seen by the hospitalist and restarted on her home HIV medications. She was observed on the unit and after demonstrating several days of no suicidal ideation or concerning signs or symptoms, she no longer met involuntary criteria and thus her request for discharge was honored after she declined a voluntary admission. She was noted to have no behavioral problems on the unit and attended groups frequently. Discharge Assessment The patient, a 48-year-old woman with significant alcohol use disorder treated by our outpatient behavioral health presents after making suicidal statements while severely intoxicated. She has been diagnosed with major depressive disorder. However, it is unclear whether her generalized anxiety and major depressive disorder as pre-existing conditions could be better explained by low- level occult alcohol use and withdrawal as she has had significant problems with complex intoxication. Additionally, she has had HIV for roughly 3 years by her own account that was untreated where further neuropsych testing could be helpful to parse out HIV-associated depression a phenomenon that is well known for causing neuropsychiatric symptoms. Her resolution of her symptoms on this admission suggested strongly for a substance-induced state, but at baseline, it would be helpful to understand her symptomatology. Mental Status Examination General: Well dressed with good hygiene Speech: Spontaneous and fluid Thought processes: Linear and logical MSK: Smooth and coordinated gait, no signs of tremors or involuntary orofacial movements Thought content: Future orientated Abstract reasoning, and computation: Intact Description of associations: Intact Description of abnormal or psychotic thoughts: Denies any suicidal or homicidal ideation. Denies any auditory or visual hallucinations. Does not appear to be responding to internal stimuli. Does not appear to be endorsing any bizarre or paranoid ideation. Judgment: fair Insight: fair Orientation: Alert and orientated 3 Cognition: Grossly normal Recent and remote memory: Intact Attention span and concentration: Intact Fund of knowledge: Adequate Mood: "okay" Affect: Euthymic with a full range Follow Up The social work team worked during the predischarge meeting in order to evaluate for further issues of lethality address them fully before discharge. They worked on safety planning with the patient's family members in order to ensure that the patient will have a safe and effective discharge. The patient had no changes to her home medications of Celexa 40 mg daily and Ativan 2 mg daily, but was warned by this provider that she would likely need to follow up with her outpatient psychiatrist to consider alternative options for anxiety. Recommended groups for support of people living with HIV as this will likely help with her social anxiety without the potential dangerous side effect of respiratory sedation that her Ativan carries with her chronic alcoholism. Time Spent The amount of time spent in the coordination of care for this patient was approximately 30 minutes. Monday Vital Signs/I&Os Vital Signs Date Time Temp Pulse Resp B/P (MAP) Pulse Ox O2 Delivery O2 Flow Rate FiO2 04/24/19 07:00 97.6 67 14 143/71 (95) 04/22/19 13:44 98 04/22/19 12:40 Room Air Medications Scheduled Bictegrav/Emtricit/Tenofov Ala (Biktarvy 50-200-25 mg Tablet) 1 Each Tablet, 1 TAB PO DAILY, (Reported) Citalopram Hydrobromide (Celexa) 40 Mg Tablet, 40 MG PO DAILY, (Reported) Fluocinolone/Shower Cap (Fluocinolone 0.01% Scalp Oil) 118.28 Ml Oil, 1 DOSE TOP QHS, (Reported) PATIENT APPLIES TO SCALP Lorazepam (Ativan) 2 Mg Tablet, 2 MG PO DAILY, (Reported) Zolpidem Tartrate (Ambien) 10 Mg Tablet, 5 MG PO QHS, (Reported) RX STATES TO TAKE 1/2 TAB OF 10MG DOSE. PATIENT STATES SHE TAKES 1/2 - 1 TAB DEPENDING ON HOW SHE FEELS. Scheduled PRN Acetaminophen (Acetaminophen) 325 Mg Tablet, 650 MG PO Q4H PRN for PAIN, (Reported) Nicotine (Nicotine Patch) 21 Mg Patch.td24, 1 PATCH TD DAILYPRN PRN for NICOTINE WITHDRAWAL for 30 Days, #30 Allergies Coded Allergies: cephalexin (Verified Allergy, Mild, Rash, 02/04/19) ciprofloxacin (Verified Allergy, Mild, Itching, 02/04/19) TAPE (Verified Allergy, Unknown, RASH, 08/05/17) trazodone (Verified Adverse Reaction, Severe, Hallucinations, 02/04/19) JOANN CARRINGTON DO Apr 24, 2019 10:33
== END 2019-04-24 11:35 | disposition home or self-care (01) | DRG 751 ==
LOC: M ED 16:42 → M ED INP 04-22 13:00 → M PSY 04-22 15:46
PROVIDERS: ADMIT Psychiatry & Neurology Addiction Medicine; ATTEND Psychiatry & Neurology Addiction Medicine
DX: F33.9 Major depressive disorder, recurrent, unspecified (principal); B20 Human immunodeficiency virus [HIV] disease; F41.1 Generalized anxiety disorder; F10.288 Alcohol dependence with other alcohol-induced disorder; Z91.410 Personal history of adult physical and sexual abuse; G43.909 Migraine, unspecified, not intractable, without status migrainosus; F17.210 Nicotine dependence, cigarettes, uncomplicated; Z79.899 Other long term (current) drug therapy; Z88.1 Allergy status to other antibiotic agents; Z88.8 Allergy status to other drugs, medicaments and biological substances; Z91.048 Other nonmedicinal substance allergy status

== ENCOUNTER → 2019-04-30 | Outpatient (REF) | payer OTHER ==
[~2019-04-30] MED LIST changes: +ACET1TAB55 PO; +AMBI10TA PO; +ATIV2TAB PO; +BIKT1TAB PO; +CELE40TA PO; +FLUO0.0118 TOP; +FLUO0.0119 TOP; +NICO21PAT TD; +[UNRECOGNIZED DRUG - OTHER]
[2019-04-30 16:54] LABS: ALBUMIN 3.7 GM/DL (3.2-5.2); ALT/SGPT 30 U/L (12-78); BILIRUBIN,TOTAL 0.6 MG/DL (0.2-1.0); BLOOD UREA NITROGEN 4 MG/DL (7-18); CALCIUM LEVEL 9.2 MG/DL (8.5-10.1); CARBON DIOXIDE LEVEL 32 MEQ/L (21-32); CHLORIDE LEVEL 101 MEQ/L (98-107); CREATININE FOR GFR 0.81 MG/DL (0.55-1.30); GLOMERULAR FILTRATION RATE > 60.0 (>58); GLUCOSE, FASTING 79 MG/DL (70-100); SODIUM LEVEL 138 MEQ/L (136-145); TOTAL PROTEIN 8.1 GM/DL (6.4-8.2)
[2019-05-04 00:06] LABS: % CD8 Pos Lymph 75.2 % (12.0-35.5); %CD4 Pos Lymphs 14.5 % (30.8-58.5); ABS Eosinophils 0.1 x10E3/uL (0.0-0.4); ABS Lymphs 1.3 x10E3/uL (0.7-3.1); ABS Monocytes 0.4 x10E3/uL (0.1-0.9); ABS Neutophils 3.5 x10E3/uL (1.4-7.0); Abs CD4 Helper 189 /uL (359-1519); Abs CD8 Suppres 978 /uL (109-897); CD4/CD8 Ratio 0.19 (0.92-3.72); Eosinophils 1 % (Not Estab.); HCT 44.4 % (34.0-46.6); HGB 15.1 g/dL (11.1-15.9); HIV-1 RNA PCR QUANT 2 LC550285 <20 copies/mL (.); Immature Grans 0 % (Not Estab.); Lymphocytes 24 % (Not Estab.); MCH 36.6 pg (26.6-33.0); MCV 108 fL (79-97); Monocytes 7 % (Not Estab.); Neutrophils 68 % (Not Estab.); Platelets 240 x10E3/uL (150-450); RBC 4.13 x10E6/uL (3.77-5.28); RDW 12.7 % (12.3-15.4); WBC 5.2 x10E3/uL (3.4-10.8)
== END ==
LOC: M SFHCPLAZ 13:36
PROVIDERS: ATTEND Internal Medicine Infectious Disease
DX: B20 Human immunodeficiency virus [HIV] disease (principal)

== ENCOUNTER → 2019-05-02 | Outpatient (REF) | payer OTHER | LOC: M SFHCPLAZ 17:01 | PROVIDERS: ATTEND Dermatology | DX: R21 Rash and other nonspecific skin eruption (principal) ==

== ENCOUNTER → 2019-07-02 | Outpatient (CLI) | payer OTHER, MEDICAID ==
--- NOTE | 2019-07-02 17:25 | REP ---
Left shoulder three views: Comparison is 03/13/2012. Mineralization is normal. The acromioclavicular glenohumeral articulations are unremarkable. There is no fracture or dislocation. There are no calcifications. There is deformity of the humeral head compatible with an old Hill-Sachs lesion. This is unchanged. There are orthopedic anchor screws in the glenoid rim, unchanged. Impression: [place]-Sachs deformity of the humeral head. Orthopedic anchor screws in the glenoid. No acute fracture or dislocation. No calcifications. Electronically Signed by Roldan Camacho MD 07/02/2019 05:17 P
== END ==
LOC: M LRY 15:10
PROVIDERS: ATTEND Physician Assistant
DX: S49.92XA Unspecified injury of left shoulder and upper arm, initial encounter (principal); X58.XXXA Exposure to other specified factors, initial encounter; Y92.89 Other specified places as the place of occurrence of the external cause

== ENCOUNTER → 2019-07-29 | Outpatient (REF) | payer OTHER ==
[2019-07-29 16:38] LABS: ALBUMIN 3.6 GM/DL (3.2-5.2); ALT/SGPT 75 U/L (12-78); BILIRUBIN,TOTAL 0.5 MG/DL (0.2-1.0); BLOOD UREA NITROGEN 4 MG/DL (7-18); CALCIUM LEVEL 8.9 MG/DL (8.5-10.1); CARBON DIOXIDE LEVEL 30 MEQ/L (21-32); CHLORIDE LEVEL 104 MEQ/L (98-107); CREATININE FOR GFR 0.62 MG/DL (0.55-1.30); GLOMERULAR FILTRATION RATE > 60.0 (>58); GLUCOSE, FASTING 76 MG/DL (70-100); POTASSIUM SERUM 4.4 MEQ/L (3.5-5.1); SODIUM LEVEL 139 MEQ/L (136-145); TOTAL PROTEIN 7.4 GM/DL (6.4-8.2)
[2019-08-02 00:10] LABS: % CD8 Pos Lymph 74.6 % (12.0-35.5); ABS Eosinophils 0.1 x10E3/uL (0.0-0.4); ABS Lymphs 1.3 x10E3/uL (0.7-3.1); ABS Monocytes 0.4 x10E3/uL (0.1-0.9); ABS Neutophils 2.5 x10E3/uL (1.4-7.0); Abs CD4 Helper 208 /uL (359-1519); Abs CD8 Suppres 970 /uL (109-897); CD4/CD8 Ratio 0.21 (0.92-3.72); Eosinophils 2 % (Not Estab.); HCT 42.6 % (34.0-46.6); HGB 14.1 g/dL (11.1-15.9); HIV-1 RNA PCR QUANT 2 LC550285 50 copies/mL (.); HIV-1 RNA PCR QUANT 3 LC550285 1.699 (.); Immature Grans 1 % (Not Estab.); Lymphocytes 31 % (Not Estab.); MCH 36.2 pg (26.6-33.0); MCHC 33.1 g/dL (31.5-35.7); MCV 110 fL (79-97); Monocytes 9 % (Not Estab.); Neutrophils 57 % (Not Estab.); Platelets 181 x10E3/uL (150-450); RBC 3.89 x10E6/uL (3.77-5.28); RDW 13.3 % (12.3-15.4); WBC 4.4 x10E3/uL (3.4-10.8)
== END ==
LOC: M SFHCPLAZ 13:35
PROVIDERS: ATTEND Internal Medicine Infectious Disease
DX: B20 Human immunodeficiency virus [HIV] disease (principal)

== ENCOUNTER → 2019-10-29 | Outpatient (REF) | payer OTHER ==
[2019-10-29 15:48] LABS: APPEARANCE, URINE CLEAR (CLEAR); BACTERIA, URINE AUTO NEGATIVE (NEGATIVE); BILIRUBIN, URINE AUTO NEGATIVE (NEGATIVE); BLOOD, URINE BLOOD NEGATIVE (NEGATIVE); COLOR, URINE YELLOW (YELLOW); GLUCOSE, URINE (UA) AUTO NEGATIVE (NEGATIVE); KETONE, URINE AUTO TRACE mg/dL (NEGATIVE); LEUKOCYTE ESTERASE, URINE AUTO NEGATIVE (NEGATIVE); NITRITE, URINE AUTO NEGATIVE (NEGATIVE); PROTEIN, URINE AUTO NEGATIVE (NEGATIVE); RBC, URINE AUTO 2 /HPF (0-3); SPECIFIC GRAVITY URINE AUTO 1.018 (1.002-1.035); SQUAMOUS EPITHELIAL CELL UR AU 1 /HPF (0-6); WBC, URINE AUTO 0 /HPF (0-3)
[2019-10-29 16:18] LABS: ALBUMIN 3.7 GM/DL (3.2-5.2); ALT/SGPT 21 U/L (12-78); BILIRUBIN,TOTAL 0.6 MG/DL (0.2-1.0); BLOOD UREA NITROGEN 8 MG/DL (7-18); CALCIUM LEVEL 8.8 MG/DL (8.5-10.1); CARBON DIOXIDE LEVEL 28 MEQ/L (21-32); CHLORIDE LEVEL 103 MEQ/L (98-107); CREATININE FOR GFR 0.63 MG/DL (0.55-1.30); GLOMERULAR FILTRATION RATE > 60.0 (>58); GLUCOSE, FASTING 70 MG/DL (70-100); POTASSIUM SERUM 4.5 MEQ/L (3.5-5.1); SODIUM LEVEL 139 MEQ/L (136-145); TOTAL PROTEIN 7.2 GM/DL (6.4-8.2)
== END ==
LOC: M SFHCPLAZ 13:50
PROVIDERS: ATTEND Internal Medicine Infectious Disease
DX: B20 Human immunodeficiency virus [HIV] disease (principal)

== ENCOUNTER → 2019-12-12 | Outpatient (REF) | payer OTHER ==
[2019-12-12 14:34] LABS: BASO # 0.1 10^3/uL (0.0-0.2); BASO % 0.7 % (0.0-1.0); EOS # 0.1 10^3/uL (0.0-0.5); EOS % 1.2 % (0.0-3.0); HEMATOCRIT 43.4 % (36.0-47.0); LYMPH % 24.4 % (24.0-44.0); MEAN CORPUSCULAR HEMOGLOBIN 36.5 pg (27.0-33.0); MEAN CORPUSCULAR HGB CONC 34.6 g/dl (32.0-36.5); MEAN CORPUSCULAR VOLUME 105.6 fl (80.0-96.0); MONO # 0.6 10^3/uL (0.0-0.8); MONO % 7.8 % (0.0-5.0); NEUTROPHILS # 5.3 10^3/uL (1.5-8.5); NEUTROPHILS % 65.4 % (36.0-66.0); PLATELET COUNT, AUTOMATED 279 10^3/uL (150-450); RED BLOOD COUNT 4.11 10^6/uL (4.00-5.40); WHITE BLOOD COUNT 8.1 10^3/uL (4.0-10.0)
[2019-12-12 14:39] LABS: INR 0.93; PROTHROMBIN TIME 12.1 SECONDS (11.8-14.0)
[2019-12-12 14:40] LABS: PARTIAL THROMBOPLASTIN TIME 31.9 SECONDS (25.0-38.4)
== END ==
LOC: M SFHCPLAZ 13:38
PROVIDERS: ATTEND Internal Medicine Infectious Disease
DX: R23.8 Other skin changes (principal)

== ENCOUNTER 2019-12-21 20:36 | Emergency (ER) | payer MEDICAID, OTHER ==
[2019-12-21] MEDS ORDERED: GABA-843 PO (20:57)
[2019-12-21 21:32] LABS: HEMATOCRIT 42.8 % (36.0-47.0); HEMOGLOBIN 14.9 g/dl (12.0-15.5); MEAN CORPUSCULAR HEMOGLOBIN 36.9 pg (27.0-33.0); MEAN CORPUSCULAR HGB CONC 34.8 g/dl (32.0-36.5); MEAN CORPUSCULAR VOLUME 105.9 fl (80.0-96.0); PLATELET COUNT, AUTOMATED 164 10^3/uL (150-450); RED BLOOD COUNT 4.04 10^6/uL (4.00-5.40); WHITE BLOOD COUNT 6.3 10^3/uL (4.0-10.0)
[2019-12-21 22:04] LABS: ACETAMINOPHEN LEVEL < 2.0 UG/ML (10.0-30.0); ALBUMIN 3.5 GM/DL (3.2-5.2); ALT/SGPT 25 U/L (12-78); BILIRUBIN,DIRECT < 0.1 MG/DL (0.0-0.2); BILIRUBIN,TOTAL 0.2 MG/DL (0.2-1.0); BLOOD UREA NITROGEN 4 MG/DL (7-18); CALCIUM LEVEL 7.7 MG/DL (8.5-10.1); CARBON DIOXIDE LEVEL 24 MEQ/L (21-32); CHLORIDE LEVEL 104 MEQ/L (98-107); CREATININE FOR GFR 0.54 MG/DL (0.55-1.30); ETHYL ALCOHOL (ETHANOL) 0.371 % (0.000-0.010); GLOMERULAR FILTRATION RATE > 60.0 (>58); GLUCOSE, FASTING 79 MG/DL (70-100); POTASSIUM SERUM 4.1 MEQ/L (3.5-5.1); SALICYLATE LEVEL 7.1 MG/DL (5.0-30.0); SODIUM LEVEL 136 MEQ/L (136-145); TOTAL PROTEIN 7.5 GM/DL (6.4-8.2)
[2019-12-21 22:19] LABS: AMPHETAMINES LEVEL URINE NEGATIVE (NEGATIVE); BARBITURATES URINE NEGATIVE (NEGATIVE); BENZODIAZEPINES URINE NEGATIVE (NEGATIVE); CANNABINOIDS URINE NEGATIVE (NEGATIVE); COCAINE METABOLITE URINE NEGATIVE (NEGATIVE); METHADONE URINE NEGATIVE (NEGATIVE); OPIATES URINE NEGATIVE (NEGATIVE); PHENCYCLIDINE URINE NEGATIVE (NEGATIVE)
[2019-12-22] MEDS ORDERED: LORazepam 2 MG TAB PO PRN (07:00)
[2019-12-22] MEDS ORDERED: FOLIC ACID 1 MG TAB PO SCH (09:00)
[2019-12-22] MEDS ORDERED: MULTIVITAMINS/MINERALS THERAP 1 TAB PO SCH (09:00)
[2019-12-22] MEDS ORDERED: THIAMINE 100 MG TAB PO SCH (09:00)
[2019-12-22 09:18] VITALS: BP 132/74
== END 2019-12-22 10:18 | disposition home or self-care (01) ==
LOC: M ED 20:36
DX: F10.229 Alcohol dependence with intoxication, unspecified (principal); Y90.1 Blood alcohol level of 20-39 mg/100 ml; F43.20 Adjustment disorder, unspecified; F33.9 Major depressive disorder, recurrent, unspecified; B20 Human immunodeficiency virus [HIV] disease; Z79.899 Other long term (current) drug therapy; Z88.1 Allergy status to other antibiotic agents; Z88.8 Allergy status to other drugs, medicaments and biological substances; Z91.048 Other nonmedicinal substance allergy status; F17.210 Nicotine dependence, cigarettes, uncomplicated
CPT/HCPCS: 36415; 80048; 80076; 80307; 84443; 85027; 99284; G0480

== ENCOUNTER → 2020-01-02 | Outpatient (REF) | payer OTHER, MEDICAID ==
[~2020-01-02] MED LIST changes: +GABA-843 PO
== END ==
LOC: M SFHCWAGY 12:40
PROVIDERS: ATTEND Internal Medicine Infectious Disease
DX: R68.89 Other general symptoms and signs (principal)
CPT/HCPCS: 87502; U0002

== ENCOUNTER → 2020-04-28 | Outpatient (REF) | payer OTHER ==
[2020-04-28 15:54] LABS: ALBUMIN 3.7 GM/DL (3.2-5.2); ALT/SGPT 22 U/L (12-78); BILIRUBIN,TOTAL 0.5 MG/DL (0.2-1.0); BLOOD UREA NITROGEN 8 MG/DL (7-18); CALCIUM LEVEL 9.5 MG/DL (8.5-10.1); CARBON DIOXIDE LEVEL 30 MEQ/L (21-32); CHLORIDE LEVEL 104 MEQ/L (98-107); CREATININE FOR GFR 0.77 MG/DL (0.55-1.30); GLOMERULAR FILTRATION RATE > 60.0 (>58); GLUCOSE, FASTING 93 MG/DL (70-100); POTASSIUM SERUM 4.5 MEQ/L (3.5-5.1); SODIUM LEVEL 139 MEQ/L (136-145); TOTAL PROTEIN 7.6 GM/DL (6.4-8.2)
[2020-05-25 08:06] LABS: % CD8 Pos Lymph 69.1 % (12.0-35.5); %CD4 Pos Lymphs 22.9 % (30.8-58.5); ABS Eosinophils 0.3 x10E3/uL (0.0-0.4); ABS Lymphs 1.7 x10E3/uL (0.7-3.1); ABS Monocytes 0.6 x10E3/uL (0.1-0.9); ABS Neutophils 4.2 x10E3/uL (1.4-7.0); Abs CD4 Helper 389 /uL (359-1519); Abs CD8 Suppres 1175 /uL (109-897); CD4/CD8 Ratio 0.33 (0.92-3.72); Eosinophils 4 % (Not Estab.); HCT 44.1 % (34.0-46.6); HGB 15.4 g/dL (11.1-15.9); HIV-1 RNA PCR QUANT 2 LC550285 <20 copies/mL (.); Immature Grans 0 % (Not Estab.); Lymphocytes 25 % (Not Estab.); MCH 36.9 pg (26.6-33.0); MCHC 34.9 g/dL (31.5-35.7); MCV 106 fL (79-97); Monocytes 9 % (Not Estab.); Neutrophils 62 % (Not Estab.); Platelets 284 x10E3/uL (150-450); RBC 4.17 x10E6/uL (3.77-5.28); RDW 11.4 % (11.7-15.4); WBC 6.9 x10E3/uL (3.4-10.8)
== END ==
LOC: M SFHCPLAZ 13:52
PROVIDERS: ATTEND Internal Medicine Infectious Disease
DX: B20 Human immunodeficiency virus [HIV] disease (principal)

== ENCOUNTER → 2020-07-31 | Outpatient (CLI) | payer OTHER | LOC: M LABSMTC 09:38 | PROVIDERS: ATTEND Orthopaedic Surgery | DX: Z01.818 Encounter for other preprocedural examination (principal); Z20.828 Contact with and (suspected) exposure to other viral communicable diseases ==

== ENCOUNTER → 2020-08-05 | Outpatient (REF) | payer OTHER | LOC: M LAB REF 15:00 | PROVIDERS: ATTEND Orthopaedic Surgery | DX: M25.822 Other specified joint disorders, left elbow (principal) ==

== ENCOUNTER → 2020-10-12 | Outpatient (REF) | payer OTHER ==
[2020-10-12 12:32] LABS: BASO % 0.5 % (0.0-1.0); EOS # 0.1 10^3/uL (0.0-0.5); EOS % 1.5 % (0.0-3.0); HEMOGLOBIN 14.7 g/dl (12.0-15.5); LYMPH # 1.9 10^3/uL (1.5-5.0); LYMPH % 20.9 % (24.0-44.0); MEAN CORPUSCULAR HEMOGLOBIN 35.9 pg (27.0-33.0); MEAN CORPUSCULAR HGB CONC 34.2 g/dl (32.0-36.5); MEAN CORPUSCULAR VOLUME 105.1 fl (80.0-96.0); MONO # 0.6 10^3/uL (0.0-0.8); MONO % 7.1 % (0.0-5.0); NEUTROPHILS # 6.2 10^3/uL (1.5-8.5); NEUTROPHILS % 69.5 % (36.0-66.0); PLATELET COUNT, AUTOMATED 291 10^3/uL (150-450); RED BLOOD COUNT 4.09 10^6/uL (4.00-5.40); WHITE BLOOD COUNT 8.9 10^3/uL (4.0-10.0)
[2020-10-12 13:10] LABS: ERYTHROCYTE SEDIMENTATION RATE 9 mm/hr (0-20)
[2020-10-12 15:00] LABS: ALBUMIN 3.7 GM/DL (3.2-5.2); ALT/SGPT 21 U/L (12-78); BILIRUBIN,TOTAL 0.5 MG/DL (0.2-1.0); BLOOD UREA NITROGEN 7 MG/DL (7-18); CALCIUM LEVEL 8.7 MG/DL (8.5-10.1); CARBON DIOXIDE LEVEL 26 MEQ/L (21-32); CHLORIDE LEVEL 105 MEQ/L (98-107); CHOLESTEROL LEVEL 242 MG/DL (<200); CHOLESTEROL RISK RATIO 4.481 (<5); CREATININE FOR GFR 0.79 MG/DL (0.55-1.30); FREE T4 0.91 NG/DL (0.76-1.46); GLOMERULAR FILTRATION RATE > 60.0 (>58); GLUCOSE, FASTING 92 MG/DL (70-100); HDL CHOLESTEROL 54 MG/DL (>40); LDL CHOLESTEROL 128 MG/DL (<100); NON-HDL-C 188 MG/DL; POTASSIUM SERUM 4.2 MEQ/L (3.5-5.1); SODIUM LEVEL 137 MEQ/L (136-145); TOTAL PROTEIN 7.2 GM/DL (6.4-8.2); TRIGLYCERIDES LEVEL 302 MG/DL (<150)
[2020-10-14 17:12] LABS: %CD4 Pos Lymphs 22.2 % (30.8-58.5); ABS Eosinophils 0.1 x10E3/uL (0.0-0.4); ABS Lymphs 1.8 x10E3/uL (0.7-3.1); ABS Monocytes 0.6 x10E3/uL (0.1-0.9); ABS Neutophils 6.1 x10E3/uL (1.4-7.0); Abs CD4 Helper 400 /uL (359-1519); Abs CD8 Suppres 1224 /uL (109-897); CD4/CD8 Ratio 0.33 (0.92-3.72); Eosinophils 2 % (Not Estab.); HCT 41.3 % (34.0-46.6); HGB 15.1 g/dL (11.1-15.9); HIV-1 RNA PCR QUANT 2 LC550285 <20 copies/mL (.); Immature Grans 1 % (Not Estab.); Lymphocytes 21 % (Not Estab.); MCHC 36.6 g/dL (31.5-35.7); MCV 101 fL (79-97); Monocytes 7 % (Not Estab.); Neutrophils 69 % (Not Estab.); Platelets 295 x10E3/uL (150-450); RBC 4.08 x10E6/uL (3.77-5.28); RDW 11.4 % (11.7-15.4); WBC 8.7 x10E3/uL (3.4-10.8)
== END ==
LOC: M SFHCPLAZ 08:54
PROVIDERS: ATTEND Internal Medicine Infectious Disease
DX: B20 Human immunodeficiency virus [HIV] disease (principal); Z13.220 Encounter for screening for lipoid disorders; R63.5 Abnormal weight gain; M25.522 Pain in left elbow

== ENCOUNTER → 2020-12-15 | Outpatient (CLI) | payer OTHER ==
[~2020-12-15] MED LIST changes: +GABA-282 PO; -GABA-843 PO
== END ==
LOC: M RAD 09:16
PROVIDERS: ATTEND Orthopaedic Surgery
DX: M25.022 Hemarthrosis, left elbow (principal)

== ENCOUNTER → 2021-01-12 | Outpatient (REF) | payer OTHER ==
[2021-01-12 14:53] LABS: HEMATOCRIT 45.2 % (36.0-47.0); HEMOGLOBIN 15.2 g/dl (12.0-15.5); MEAN CORPUSCULAR HEMOGLOBIN 35.7 pg (27.0-33.0); MEAN CORPUSCULAR HGB CONC 33.6 g/dl (32.0-36.5); MEAN CORPUSCULAR VOLUME 106.1 fl (80.0-96.0); PLATELET COUNT, AUTOMATED 275 10^3/uL (150-450); RED BLOOD COUNT 4.26 10^6/uL (4.00-5.40); WHITE BLOOD COUNT 7.5 10^3/uL (4.0-10.0)
[2021-01-12 15:19] LABS: HEMOGLOBIN A1c 4.8 %
[2021-01-12 15:31] LABS: ALBUMIN 3.6 GM/DL (3.2-5.2); ALT/SGPT 21 U/L (12-78); BILIRUBIN,TOTAL 0.3 MG/DL (0.2-1.0); BLOOD UREA NITROGEN 8 MG/DL (7-18); CALCIUM LEVEL 8.8 MG/DL (8.5-10.1); CARBON DIOXIDE LEVEL 27 MEQ/L (21-32); CHLORIDE LEVEL 104 MEQ/L (98-107); CHOLESTEROL LEVEL 242 MG/DL (<200); CHOLESTEROL RISK RATIO 5.902 (<5); CREATININE FOR GFR 0.72 MG/DL (0.55-1.30); FREE T4 0.82 NG/DL (0.76-1.46); GLOMERULAR FILTRATION RATE > 60.0 (>58); GLUCOSE, FASTING 77 MG/DL (70-100); HDL CHOLESTEROL 41 MG/DL (>40); NON-HDL-C 201 MG/DL; POTASSIUM SERUM 4.9 MEQ/L (3.5-5.1); SODIUM LEVEL 136 MEQ/L (136-145); TOTAL 25(OH) VITAMIN D 7.7 NG/ML (30.0-100.0); TOTAL PROTEIN 7.5 GM/DL (6.4-8.2); TRIGLYCERIDES LEVEL 411 MG/DL (<150)
[2021-01-12 15:55] LABS: ATYPICAL LYMPH 26 % (0-5); EOSINOPHILS 4 % (0-3); LYMPHOCYTES 15 % (16-44); MONOCYTES 5 % (0-5); NEUTROPHILS 42 % (28-66); PLATELET ESTIMATE NORMAL (NORMAL)
[2021-01-14 14:08] LABS: % CD8 Pos Lymph 66.5 % (12.0-35.5); %CD4 Pos Lymphs 25.4 % (30.8-58.5); ABS Basophils 0.1 x10E3/uL (0.0-0.2); ABS Eosinophils 0.3 x10E3/uL (0.0-0.4); ABS Lymphs 2.3 x10E3/uL (0.7-3.1); ABS Monocytes 0.7 x10E3/uL (0.1-0.9); ABS Neutophils 4.2 x10E3/uL (1.4-7.0); Abs CD4 Helper 584 /uL (359-1519); Abs CD8 Suppres 1530 /uL (109-897); CD4/CD8 Ratio 0.38 (0.92-3.72); Eosinophils 5 % (Not Estab.); HGB 15.3 g/dL (11.1-15.9); HIV-1 RNA PCR QUANT 2 LC550285 50 copies/mL (.); HIV-1 RNA PCR QUANT 3 LC550285 1.699 (.); Immature Grans 0 % (Not Estab.); Lymphocytes 30 % (Not Estab.); MCH 36.5 pg (26.6-33.0); MCHC 36.4 g/dL (31.5-35.7); MCV 100 fL (79-97); Monocytes 9 % (Not Estab.); Neutrophils 55 % (Not Estab.); Platelets 280 x10E3/uL (150-450); RBC 4.19 x10E6/uL (3.77-5.28); RDW 12.1 % (11.7-15.4); WBC 7.5 x10E3/uL (3.4-10.8)
== END ==
LOC: M SFHCPLAZ 09:59
PROVIDERS: ATTEND Internal Medicine Infectious Disease
DX: B20 Human immunodeficiency virus [HIV] disease (principal); F41.8 Other specified anxiety disorders; E78.5 Hyperlipidemia, unspecified; E55.9 Vitamin D deficiency, unspecified

== ENCOUNTER → 2021-04-28 | Outpatient (CLI) | payer MEDICARE, OTHER ==
[~2021-04-28] MED LIST changes: +AMOX875T2; +AMOX875T2 PO; +ARIP1TAB4 PO; +CABO6SUS; +CABO6SUS IM; +CITA40TA7 PO; +CLIN-250 PO; +FLUC150T9; +LORA1TAB4 PO; +LORA2TAB14; +METO1TAB32 PO; +MULT-90 PO; +RISATAB3 PO; +ROSU10TA6 PO; +ZOLP12.518 PO; +[UNRECOGNIZED DRUG - CODE] PO; +[UNRECOGNIZED DRUG - CODE] PO
== END ==
LOC: M WHC 16:03
PROVIDERS: ATTEND Nurse Practitioner Family
DX: Z12.31 Encounter for screening mammogram for malignant neoplasm of breast (principal); Z80.3 Family history of malignant neoplasm of breast; Z80.8 Family history of malignant neoplasm of other organs or systems; Z98.890 Other specified postprocedural states

== ENCOUNTER → 2021-05-18 | Outpatient (CLI) | payer MEDICARE, OTHER ==
[~2021-05-18] MED LIST changes: -AMOX875T2; -AMOX875T2 PO; -ARIP1TAB4 PO; -CABO6SUS; -CABO6SUS IM; -CITA40TA7 PO; -CLIN-250 PO; -FLUC150T9; -LORA1TAB4 PO; -LORA2TAB14; -METO1TAB32 PO; -MULT-90 PO; -RISATAB3 PO; -ROSU10TA6 PO; -ZOLP12.518 PO; -[UNRECOGNIZED DRUG - CODE] PO; -[UNRECOGNIZED DRUG - CODE] PO
[2021-05-18 13:59] LABS: HEMOGLOBIN A1c 4.9 %
[2021-05-18 14:01] LABS: ALBUMIN 3.9 GM/DL (3.2-5.2); ALT/SGPT 33 U/L (12-78); BILIRUBIN,TOTAL 0.4 MG/DL (0.2-1.0); BLOOD UREA NITROGEN 7 MG/DL (7-18); CALCIUM LEVEL 9.2 MG/DL (8.5-10.1); CARBON DIOXIDE LEVEL 29 MEQ/L (21-32); CHLORIDE LEVEL 108 MEQ/L (98-107); CHOLESTEROL LEVEL 158 MG/DL (<200); CREATININE FOR GFR 0.71 MG/DL (0.55-1.30); GLOMERULAR FILTRATION RATE > 60.0 (>58); GLUCOSE, FASTING 85 MG/DL (70-100); HDL CHOLESTEROL 37 MG/DL (>40); LDL CHOLESTEROL 72 MG/DL (<100); NON-HDL-C 121 MG/DL; POTASSIUM SERUM 4.4 MEQ/L (3.5-5.1); SODIUM LEVEL 140 MEQ/L (136-145); TRIGLYCERIDES LEVEL 244 MG/DL (<150)
[2021-05-18 14:09] LABS: TOTAL 25(OH) VITAMIN D 59.2 NG/ML (30.0-100.0)
== END ==
LOC: M PLALAB 09:06
PROVIDERS: ATTEND Nurse Practitioner Family
DX: E78.5 Hyperlipidemia, unspecified (principal); E55.9 Vitamin D deficiency, unspecified; Z79.899 Other long term (current) drug therapy

== ENCOUNTER → 2021-06-17 | Outpatient (CLI) | payer MEDICARE, OTHER ==
[2021-06-18 15:09] LABS: % CD8 Pos Lymph 62.2 % (12.0-35.5); %CD4 Pos Lymphs 26.1 % (30.8-58.5); ABS Eosinophils 0.2 x10E3/uL (0.0-0.4); ABS Lymphs 2.7 x10E3/uL (0.7-3.1); ABS Monocytes 0.5 x10E3/uL (0.1-0.9); ABS Neutophils 5.1 x10E3/uL (1.4-7.0); Abs CD4 Helper 705 /uL (359-1519); Abs CD8 Suppres 1679 /uL (109-897); CD4/CD8 Ratio 0.42 (0.92-3.72); Eosinophils 2 % (Not Estab.); HCT 43.4 % (34.0-46.6); HGB 14.6 g/dL (11.1-15.9); HIV-1 RNA PCR QUANT 2 LC550285 60 copies/mL (.); HIV-1 RNA PCR QUANT 3 LC550285 1.778 (.); Immature Grans 0 % (Not Estab.); Lymphocytes 32 % (Not Estab.); MCH 33.8 pg (26.6-33.0); MCHC 33.6 g/dL (31.5-35.7); MCV 101 fL (79-97); Monocytes 6 % (Not Estab.); Neutrophils 59 % (Not Estab.); Platelets 256 x10E3/uL (150-450); RBC 4.32 x10E6/uL (3.77-5.28); RDW 12.1 % (11.7-15.4); WBC 8.5 x10E3/uL (3.4-10.8)
== END ==
LOC: M PLALAB 09:01
PROVIDERS: ATTEND Internal Medicine Infectious Disease
DX: B20 Human immunodeficiency virus [HIV] disease (principal)

== ENCOUNTER → 2021-06-24 | Outpatient (CLI) | payer OTHER, MEDICARE | LOC: M PLALAB 11:44 | PROVIDERS: ATTEND Internal Medicine Infectious Disease | DX: B20 Human immunodeficiency virus [HIV] disease (principal) ==

== ENCOUNTER → 2021-09-20 | Outpatient (CLI) | payer MEDICARE, OTHER ==
[2021-09-20 12:07] LABS: CHOLESTEROL RISK RATIO 4.279 (<5)
[2021-09-20 12:11] LABS: TOTAL 25(OH) VITAMIN D 54.4 NG/ML (30.0-100.0)
== END ==
LOC: M PLALAB 08:31
PROVIDERS: ATTEND Nurse Practitioner Family
DX: E78.5 Hyperlipidemia, unspecified (principal); E55.9 Vitamin D deficiency, unspecified

== ENCOUNTER → 2021-09-20 | Outpatient (CLI) | payer MEDICARE, OTHER ==
[~2021-09-20] MED LIST changes: +AMOX875T2; +AMOX875T2 PO; +ARIP1TAB4 PO; +CABO6SUS; +CABO6SUS IM; +CITA40TA7 PO; +CLIN-250 PO; +FLUC150T9; +LORA1TAB4 PO; +LORA2TAB14; +METO1TAB32 PO; +MULT-90 PO; +RISATAB3 PO; +ROSU10TA6 PO; +ZOLP12.518 PO; +[UNRECOGNIZED DRUG - CODE] PO; +[UNRECOGNIZED DRUG - CODE] PO
[2021-09-21 18:08] LABS: % CD8 Pos Lymph 62.6 % (12.0-35.5); %CD4 Pos Lymphs 27.3 % (30.8-58.5); ABS Basophils 0.1 x10E3/uL (0.0-0.2); ABS Eosinophils 0.2 x10E3/uL (0.0-0.4); ABS Lymphs 2.3 x10E3/uL (0.7-3.1); ABS Monocytes 0.5 x10E3/uL (0.1-0.9); ABS Neutophils 5.7 x10E3/uL (1.4-7.0); Abs CD4 Helper 628 /uL (359-1519); Abs CD8 Suppres 1440 /uL (109-897); CD4/CD8 Ratio 0.44 (0.92-3.72); Eosinophils 2 % (Not Estab.); HCT 43.2 % (34.0-46.6); HGB 15.5 g/dL (11.1-15.9); HIV-1 RNA PCR QUANT 2 LC550285 50 copies/mL (.); HIV-1 RNA PCR QUANT 3 LC550285 1.699 (.); Immature Grans 0 % (Not Estab.); Lymphocytes 26 % (Not Estab.); MCH 35.6 pg (26.6-33.0); MCHC 35.9 g/dL (31.5-35.7); MCV 99 fL (79-97); Monocytes 6 % (Not Estab.); Neutrophils 65 % (Not Estab.); Platelets 336 x10E3/uL (150-450); RBC 4.35 x10E6/uL (3.77-5.28); RDW 11.9 % (11.7-15.4); WBC 8.7 x10E3/uL (3.4-10.8)
== END ==
LOC: M PLALAB 08:33
PROVIDERS: ATTEND Internal Medicine Infectious Disease
DX: B20 Human immunodeficiency virus [HIV] disease (principal); E78.5 Hyperlipidemia, unspecified; E55.9 Vitamin D deficiency, unspecified

== ENCOUNTER 2021-11-25 13:24 | Observation (INO) | payer MEDICARE, OTHER ==
[~2021-11-25] VITALS: Ht 172.7 cm; Wt 82.0 kg
[~2021-11-25 13:24] MED LIST changes: -AMOX875T2; -AMOX875T2 PO; -ARIP1TAB4 PO; -CABO6SUS; -CABO6SUS IM; -CITA40TA7 PO; -CLIN-250 PO; -FLUC150T9; -LORA1TAB4 PO; -LORA2TAB14; -METO1TAB32 PO; -MULT-90 PO; -RISATAB3 PO; -ROSU10TA6 PO; -ZOLP12.518 PO; -[UNRECOGNIZED DRUG - CODE] PO; -[UNRECOGNIZED DRUG - CODE] PO
[2021-11-25] MEDS ORDERED: CLIN-250 PO (13:54)
[2021-11-25] MEDS ORDERED: METO1TAB32 PO (13:54)
[2021-11-25] MEDS ORDERED: CABO6SUS (13:54)
[2021-11-25] MEDS ORDERED: ZOLP12.518 PO (13:54)
[2021-11-25] MEDS ORDERED: ARIP1TAB4 PO (13:54)
[2021-11-25] MEDS ORDERED: CITA40TA7 PO (13:54)
[2021-11-25] MEDS ORDERED: LORA2TAB14 (13:54)
[2021-11-25] MEDS ORDERED: FLUC150T9 (13:54)
[2021-11-25] MEDS ORDERED: ROSU10TA6 PO (13:54)
[2021-11-25] MEDS ORDERED: AMOX875T2 (13:54)
[2021-11-25] MEDS ORDERED: ACETAMINOPHEN 325 MG TAB PO ONE (17:05)
[2021-11-25 17:34] LABS: HEMATOCRIT 45.2 % (36.0-47.0); HEMOGLOBIN 15.3 g/dl (12.0-15.5); MEAN CORPUSCULAR HEMOGLOBIN 33.7 pg (27.0-33.0); MEAN CORPUSCULAR HGB CONC 33.8 g/dl (32.0-36.5); MEAN CORPUSCULAR VOLUME 99.6 fl (80.0-96.0); PLATELET COUNT, AUTOMATED 295 10^3/uL (150-450); RED BLOOD COUNT 4.54 10^6/uL (4.00-5.40); WHITE BLOOD COUNT 9.7 10^3/uL (4.0-10.0)
[2021-11-25 17:55] LABS: ALBUMIN 4.1 GM/DL (3.2-5.2); ALT/SGPT 37 U/L (12-78); BILIRUBIN,DIRECT 0.1 MG/DL (0.0-0.2); BILIRUBIN,TOTAL 0.5 MG/DL (0.2-1.0); C REACTIVE PROTEIN QUANTITATIV 0.42 MG/DL (0.00-0.30); LIPASE 115 U/L (73-393); TOTAL PROTEIN 8.1 GM/DL (6.4-8.2)
[2021-11-25 18:31] LABS: ATYPICAL LYMPH 3 % (0-5); EOSINOPHILS 3 % (0-3); LYMPHOCYTES 29 % (16-44); NEUTROPHILS 65 % (28-66); PLATELET ESTIMATE NORMAL (NORMAL)
[2021-11-25 18:39] LABS: ERYTHROCYTE SEDIMENTATION RATE 16 mm/hr (0-30)
[2021-11-25] MEDS ORDERED: AMPICILLIN SOD/SULBACTAM SOD 3 GM in D5W MINI-BAG PLUS 100 ML IV ONE (18:50)
[2021-11-25 18:58] LABS: BLOOD UREA NITROGEN 9 MG/DL (7-18); CALCIUM LEVEL 9.2 MG/DL (8.5-10.1); CARBON DIOXIDE LEVEL 25 MEQ/L (21-32); CHLORIDE LEVEL 105 MEQ/L (98-107); CREATININE FOR GFR 0.79 MG/DL (0.55-1.30); GLOMERULAR FILTRATION RATE > 60.0 (>51); GLUCOSE, FASTING 84 MG/DL (70-100); SODIUM LEVEL 139 MEQ/L (136-145)
[2021-11-25] MEDS ORDERED: ISOVUE-370 76% 100ML VIAL As Ordered ONE (19:09)
[2021-11-25] MEDS ORDERED: LORA1TAB4 PO (21:20)
[2021-11-25] MEDS ORDERED: MULT-90 PO (21:22)
[2021-11-25] MEDS ORDERED: [UNRECOGNIZED DRUG - CODE] PO (21:26)
[2021-11-25] MEDS ORDERED: [UNRECOGNIZED DRUG - CODE] PO (21:26)
[2021-11-25] MEDS ORDERED: CABO6SUS IM (21:26)
[2021-11-25] MEDS ORDERED: HOME MED LIST COMPLETE! XX SCH (21:30)
[2021-11-25] MEDS ORDERED: KETOROLAC 30 MG/ML 1ML VIAL IV PRN (21:40)
[2021-11-25] MEDS ORDERED: NS 1,000 ML IV ONE (21:40)
[2021-11-25] MEDS ORDERED: LORazepam 1 MG TAB PO PRN (21:45)
[2021-11-25] MEDS ORDERED: MAGIC MOUTHWASH SUSPENSION BTL SS PRN (21:55)
[2021-11-25] MEDS: ARIPiprazole 2 MG TAB PO SCH (22:09)
[2021-11-25] MEDS: KETOROLAC 30 MG/ML 1ML VIAL IV PRN (22:10)
[2021-11-25] MEDS: METOPROLOL SUCC *XL* 25MG TAB (TopROL *XL*) PO SCH (22:10)
[2021-11-26] MEDS: AMPICILLIN SOD/SULBACTAM SOD 3 GM in D5W MINI-BAG PLUS 100 ML IV SCH ×4 (01:56→20:58)
[2021-11-26] MEDS: KETOROLAC 30 MG/ML 1ML VIAL IV PRN (06:02)
[2021-11-26] MEDS: CitaloPRAM (CeleXA) 20 MG TAB PO SCH (08:10)
[2021-11-26] MEDS: ROSUVASTATIN 10 MG TAB (CRESTOR) PO SCH (08:10)
[2021-11-26] MEDS: LACTOBACILLUS ACIDOPHILUS CAP (BACID) PO SCH (08:10)
[2021-11-26 09:05] VITALS: BP 124/79
[2021-11-26] MEDS ORDERED: ACETAMINOPHEN TAB 650MG DOSE (2X325MG) PO PRN (10:00)
[2021-11-26] MEDS ORDERED: FLUCONAZOLE 50MG TABLET PO ONE (10:00)
[2021-11-26] MEDS: [UNRECOGNIZED DRUG - OTHER] PO SCH (10:34)
[2021-11-26] MEDS: EDURANT 25 MG PO SCH (10:34)
[2021-11-26] MEDS: MICONAZOLE TOPICAL 2% CREAM 15GM TOP SCH (18:42)
[2021-11-26] MEDS: ARIPiprazole 2 MG TAB PO SCH (20:58)
[2021-11-26 20:59] VITALS: BP 104/63
[2021-11-26] MEDS: METOPROLOL SUCC *XL* 25MG TAB (TopROL *XL*) PO SCH (20:59)
[2021-11-26 22:00] VITALS: BP 104/63
[2021-11-27] MEDS: AMPICILLIN SOD/SULBACTAM SOD 3 GM in D5W MINI-BAG PLUS 100 ML IV SCH (01:52)
[2021-11-27 06:00] VITALS: BP 117/72
[2021-11-27] MEDS ORDERED: AUGMENTIN 875 MG TAB PO SCH (09:00)
[2021-11-27] MEDS: [UNRECOGNIZED DRUG - OTHER] PO SCH (09:19)
[2021-11-27] MEDS: CitaloPRAM (CeleXA) 20 MG TAB PO SCH (09:19)
[2021-11-27] MEDS: EDURANT 25 MG PO SCH (09:19)
[2021-11-27] MEDS: ROSUVASTATIN 10 MG TAB (CRESTOR) PO SCH (09:19)
[2021-11-27] MEDS: LACTOBACILLUS ACIDOPHILUS CAP (BACID) PO SCH (09:19)
[2021-11-27] MEDS: MICONAZOLE TOPICAL 2% CREAM 15GM TOP SCH (09:21)
[2021-11-27] MEDS ORDERED: AMOX875T2 PO (10:32)
[2021-11-27] MEDS ORDERED: RISATAB3 PO (10:32)
[2021-11-29] MEDS ORDERED: FLUCONAZOLE 50MG TABLET PO PRN (09:00)
== END 2021-11-27 12:00 | disposition home or self-care (01) ==
LOC: M ED 13:24 → INTOOBSV 13:25 → M ED INP 13:25 → ENRESERV 11-26 07:10 → M MS5PR 11-26 09:05
PROVIDERS: ADMIT Internal Medicine; ATTEND Family Medicine
DX: L03.211 Cellulitis of face (principal); B20 Human immunodeficiency virus [HIV] disease; G43.909 Migraine, unspecified, not intractable, without status migrainosus; F41.9 Anxiety disorder, unspecified; F32.9 Major depressive disorder, single episode, unspecified; L29.2 Pruritus vulvae; R22.0 Localized swelling, mass and lump, head; R25.2 Cramp and spasm; R68.83 Chills (without fever); M54.2 Cervicalgia; I10 Essential (primary) hypertension; E78.5 Hyperlipidemia, unspecified; Z79.899 Other long term (current) drug therapy; Z79.2 Long term (current) use of antibiotics; Z88.1 Allergy status to other antibiotic agents; Z88.8 Allergy status to other drugs, medicaments and biological substances; Z91.048 Other nonmedicinal substance allergy status
CPT/HCPCS: 70487; 80048; 80076; 83605; 83690; 85025; 85652; 86140; 87040; 87426; 93005; 96361; 96365; 96366; 96375; 96376; 99284; G0378; J1885; Q9967

== ENCOUNTER → 2022-01-07 | Outpatient (CLI) | payer MEDICARE, OTHER, MEDICAID ==
[~2022-01-07] MED LIST changes: +AMOX875T2; +AMOX875T2 PO; +ARIP1TAB4 PO; +CABO6SUS; +CABO6SUS IM; +CITA40TA7 PO; +CLIN-250 PO; +FLUC150T9; +LORA1TAB4 PO; +LORA2TAB14; +METO1TAB32 PO; +MULT-90 PO; +RISATAB3 PO; +ROSU10TA6 PO; +ZOLP12.518 PO; +[UNRECOGNIZED DRUG - CODE] PO; +[UNRECOGNIZED DRUG - CODE] PO
== END ==
LOC: M PLALAB 07:48
PROVIDERS: ATTEND Internal Medicine Infectious Disease
DX: B20 Human immunodeficiency virus [HIV] disease (principal)

== ENCOUNTER → 2022-02-02 | Outpatient (CLI) | payer MEDICARE, OTHER, MEDICAID ==
[2022-02-04 02:12] LABS: % CD8 Pos Lymph 60.2 % (12.0-35.5); %CD4 Pos Lymphs 28.8 % (30.8-58.5); ABS Basophils 0.1 x10E3/uL (0.0-0.2); ABS Eosinophils 0.1 x10E3/uL (0.0-0.4); ABS Lymphs 2.7 x10E3/uL (0.7-3.1); ABS Monocytes 0.5 x10E3/uL (0.1-0.9); ABS Neutophils 5.4 x10E3/uL (1.4-7.0); Abs CD4 Helper 778 /uL (359-1519); Abs CD8 Suppres 1625 /uL (109-897); CD4/CD8 Ratio 0.48 (0.92-3.72); Eosinophils 2 % (Not Estab.); HCT 42.1 % (34.0-46.6); HGB 14.7 g/dL (11.1-15.9); HIV-1 RNA PCR QUANT 2 LC550285 70 copies/mL (.); HIV-1 RNA PCR QUANT 3 LC550285 1.845 (.); Immature Grans 0 % (Not Estab.); Lymphocytes 31 % (Not Estab.); MCH 33.9 pg (26.6-33.0); MCHC 34.9 g/dL (31.5-35.7); MCV 97 fL (79-97); Monocytes 6 % (Not Estab.); Neutrophils 60 % (Not Estab.); Platelets 376 x10E3/uL (150-450); RBC 4.34 x10E6/uL (3.77-5.28); RDW 12.1 % (11.7-15.4); WBC 8.8 x10E3/uL (3.4-10.8)
== END ==
LOC: M PLALAB 08:13
PROVIDERS: ATTEND Internal Medicine Infectious Disease
DX: B20 Human immunodeficiency virus [HIV] disease (principal)

== ENCOUNTER → 2022-02-28 | Outpatient (REF) | payer MEDICARE, OTHER, MEDICAID ==
[2022-02-28 11:09] LABS: APPEARANCE, URINE HAZY (CLEAR); BACTERIA, URINE AUTO 1+ (NEGATIVE); BILIRUBIN, URINE AUTO NEGATIVE (NEGATIVE); BLOOD, URINE BLOOD NEGATIVE (NEGATIVE); COLOR, URINE YELLOW (YELLOW); GLUCOSE, URINE (UA) AUTO NEGATIVE (NEGATIVE); GRANULAR CAST, URINE AUTO 1 /LPF; KETONE, URINE AUTO NEGATIVE (NEGATIVE); LEUKOCYTE ESTERASE, URINE AUTO 2+ (NEGATIVE); NITRITE, URINE AUTO NEGATIVE (NEGATIVE); PROTEIN, URINE AUTO NEGATIVE (NEGATIVE); RBC, URINE AUTO 3 /HPF (0-3); SQUAMOUS EPITHELIAL CELL UR AU 2 /HPF (0-6); UROBILINOGEN, URINE AUTO 0.2 mg/dL (0.0-2.0); WBC, URINE AUTO 133 /HPF (0-3)
== END ==
LOC: M SFHCPLAZ 10:04
PROVIDERS: ATTEND Internal Medicine Infectious Disease
DX: N30.00 Acute cystitis without hematuria (principal)

== ENCOUNTER → 2022-05-31 | Outpatient (CLI) | payer OTHER, MEDICAID | LOC: M RAD 08:53 | PROVIDERS: ATTEND Internal Medicine Infectious Disease | DX: Z12.2 Encounter for screening for malignant neoplasm of respiratory organs (principal); F17.210 Nicotine dependence, cigarettes, uncomplicated ==

== ENCOUNTER → 2022-06-29 | Outpatient (CLI) | payer OTHER, MEDICAID, MEDICARE ==
[2022-06-29 14:29] LABS: ALBUMIN 3.5 GM/DL (3.2-5.2); ALT/SGPT 60 U/L (12-78); BILIRUBIN,TOTAL 0.4 MG/DL (0.2-1.0); BLOOD UREA NITROGEN 3 MG/DL (7-18); CARBON DIOXIDE LEVEL 26 MEQ/L (21-32); CHLORIDE LEVEL 103 MEQ/L (98-107); CHOLESTEROL LEVEL 245 MG/DL (<200); CHOLESTEROL RISK RATIO 5.568 (<5); GLOMERULAR FILTRATION RATE > 60.0 (>51); GLUCOSE, FASTING 84 MG/DL (70-100); HDL CHOLESTEROL 44 MG/DL (>40); NON-HDL-C 201 MG/DL; POTASSIUM SERUM 4.2 MEQ/L (3.5-5.1); SODIUM LEVEL 134 MEQ/L (136-145); TOTAL PROTEIN 7.4 GM/DL (6.4-8.2); TRIGLYCERIDES LEVEL 410 MG/DL (<150)
[2022-06-29 15:09] LABS: HEMOGLOBIN A1c 5.1 %
[2022-07-02 00:07] LABS: % CD8 Pos Lymph 59.5 % (12.0-35.5); ABS Eosinophils 0.2 x10E3/uL (0.0-0.4); ABS Lymphs 2.4 x10E3/uL (0.7-3.1); ABS Monocytes 0.7 x10E3/uL (0.1-0.9); ABS Neutophils 4.6 x10E3/uL (1.4-7.0); Abs CD4 Helper 720 /uL (359-1519); Abs CD8 Suppres 1428 /uL (109-897); Eosinophils 2 % (Not Estab.); HGB 15.1 g/dL (11.1-15.9); HIV-1 RNA PCR QUANT 2 LC550285 20 copies/mL (.); HIV-1 RNA PCR QUANT 3 LC550285 1.301 (.); Immature Grans 1 % (Not Estab.); Lymphocytes 31 % (Not Estab.); MCH 33.6 pg (26.6-33.0); MCHC 35.1 g/dL (31.5-35.7); MCV 96 fL (79-97); Monocytes 8 % (Not Estab.); Neutrophils 57 % (Not Estab.); Platelets 286 x10E3/uL (150-450); RBC 4.49 x10E6/uL (3.77-5.28); RDW 12.1 % (11.7-15.4); WBC 7.9 x10E3/uL (3.4-10.8)
== END ==
LOC: M PLALAB 10:04
PROVIDERS: ATTEND Internal Medicine Infectious Disease
DX: B20 Human immunodeficiency virus [HIV] disease (principal); E78.5 Hyperlipidemia, unspecified

== ENCOUNTER → 2022-07-14 | Outpatient (REF) | payer MEDICARE | LOC: M SFHCWAGY 17:47 | PROVIDERS: ATTEND Nurse Practitioner Family | DX: Z12.4 Encounter for screening for malignant neoplasm of cervix (principal); R87.612 Low grade squamous intraepithelial lesion on cytologic smear of cervix (LGSIL); R87.810 Cervical high risk human papillomavirus (HPV) DNA test positive ==

== ENCOUNTER → 2022-07-14 | Outpatient (CLI) | payer MEDICARE | LOC: M WHC 09:09 | PROVIDERS: ATTEND Nurse Practitioner Family | DX: Z12.31 Encounter for screening mammogram for malignant neoplasm of breast (principal) ==

== ENCOUNTER → 2022-09-22 | Outpatient (CLI) | payer MEDICARE, OTHER ==
[~2022-09-22] MED LIST changes: +RILPIVIRINE IM; +[UNRECOGNIZED DRUG - OTHER] IM
== END ==
LOC: M LABSMTC 10:06
PROVIDERS: ATTEND Anesthesiology
DX: Z01.812 Encounter for preprocedural laboratory examination (principal); Z11.52 Encounter for screening for COVID-19

== ENCOUNTER 2022-09-27 10:16 | Day surgery (SDC) | payer MEDICARE, OTHER ==
[~2022-09-27] VITALS: Ht 172.7 cm; Wt 78.8 kg
[~2022-09-27 10:16] MED LIST changes: +NS 1,000 ML IV ONE
[2022-09-27] MEDS ORDERED: GLYCOPYRROLATE INJ 0.2 MG/ML 2 ML VIAL As Ordered ONE (13:01)
[2022-09-27] MEDS ORDERED: propofoL 200 MG/20 ML VIAL As Ordered ONE ×3 (13:01→13:23)
[2022-09-27 14:21] VITALS: BP 147/81
== END 2022-09-27 14:15 | disposition home or self-care (01) ==
LOC: M OPP 10:16
PROVIDERS: ATTEND Internal Medicine Gastroenterology
DX: Z12.11 Encounter for screening for malignant neoplasm of colon (principal); Z80.0 Family history of malignant neoplasm of digestive organs; Z83.71 Family history of colonic polyps; D12.2 Benign neoplasm of ascending colon; D12.5 Benign neoplasm of sigmoid colon; K57.30 Diverticulosis of large intestine without perforation or abscess without bleeding; F17.200 Nicotine dependence, unspecified, uncomplicated; Z79.02 Long term (current) use of antithrombotics/antiplatelets; Z79.899 Other long term (current) drug therapy; Z91.048 Other nonmedicinal substance allergy status; Z88.1 Allergy status to other antibiotic agents; Z88.8 Allergy status to other drugs, medicaments and biological substances; I10 Essential (primary) hypertension; E78.00 Pure hypercholesterolemia, unspecified; F32.9 Major depressive disorder, single episode, unspecified; F41.9 Anxiety disorder, unspecified; L40.9 Psoriasis, unspecified; B20 Human immunodeficiency virus [HIV] disease

== ENCOUNTER → 2022-10-17 | Outpatient (CLI) | payer MEDICARE ==
[~2022-10-17] MED LIST changes: -NS 1,000 ML IV ONE
[2022-10-17 11:35] LABS: ALBUMIN 3.7 G/DL (3.2-5.2); ALKALINE PHOSPHATASE 83 U/L (46-116); ALT/SGPT 41 U/L (7.0-40); AST/SGOT 46 U/L (<34); BILIRUBIN,TOTAL 0.4 MG/DL (0.3-1.2); BLOOD UREA NITROGEN 7 MG/DL (9-23); CALCIUM LEVEL 9.2 MG/DL (8.5-10.1); CARBON DIOXIDE LEVEL 26 MMOL/L (20-31); CHLORIDE LEVEL 105 MMOL/L (98-107); CREATININE FOR GFR 0.62 MG/DL (0.55-1.30); GLOMERULAR FILTRATION RATE > 60.0 (>51); GLUCOSE, FASTING 84 MG/DL (60-100); POTASSIUM SERUM 4.6 MMOL/L (3.5-5.1); SODIUM LEVEL 136 MMOL/L (136-145); TOTAL PROTEIN 7.2 G/DL (5.7-8.2)
[2022-10-19 02:07] LABS: % CD8 Pos Lymph 55.8 % (12.0-35.5); %CD4 Pos Lymphs 33.1 % (30.8-58.5); ABS Eosinophils 0.1 x10E3/uL (0.0-0.4); ABS Lymphs 2.6 x10E3/uL (0.7-3.1); ABS Monocytes 0.6 x10E3/uL (0.1-0.9); Abs CD4 Helper 861 /uL (359-1519); Abs CD8 Suppres 1451 /uL (109-897); CD4/CD8 Ratio 0.59 (0.92-3.72); Eosinophils 1 % (Not Estab.); HCT 41.5 % (34.0-46.6); HGB 14.6 g/dL (11.1-15.9); HIV-1 RNA PCR QUANT 2 LC550285 20 copies/mL (.); HIV-1 RNA PCR QUANT 3 LC550285 1.301 (.); Immature Grans 0 % (Not Estab.); Lymphocytes 28 % (Not Estab.); MCH 33.6 pg (26.6-33.0); MCHC 35.2 g/dL (31.5-35.7); MCV 95 fL (79-97); Monocytes 7 % (Not Estab.); Neutrophils 64 % (Not Estab.); Platelets 274 x10E3/uL (150-450); RBC 4.35 x10E6/uL (3.77-5.28); RDW 11.7 % (11.7-15.4); WBC 9.4 x10E3/uL (3.4-10.8)
== END ==
LOC: M PLALAB 08:55
PROVIDERS: ATTEND Internal Medicine Infectious Disease
DX: B20 Human immunodeficiency virus [HIV] disease (principal)

== ENCOUNTER → 2022-12-07 | Outpatient (REF) | payer MEDICARE, OTHER ==
[~2022-12-07] MED LIST changes: +TOPI-254 PO; -TOPI50TA9 PO
== END ==
LOC: M SFHCWAGY 13:07
PROVIDERS: ATTEND Obstetrics & Gynecology
DX: N89.0 Mild vaginal dysplasia (principal)

== ENCOUNTER → 2023-03-17 | Outpatient (CLI) | payer MEDICARE, OTHER ==
[~2023-03-17] MED LIST changes: +ABIL1TAB13 PO; +LORA1TAB23 PO; -LORA1TAB4 PO
[2023-03-17 14:24] LABS: TOTAL 25(OH) VITAMIN D 20.1 NG/ML (20.0-100.0)
[2023-03-17 14:27] LABS: ALBUMIN 3.3 G/DL (3.2-5.2); ALKALINE PHOSPHATASE 99 U/L (46-116); ALT/SGPT 97 U/L (7.0-40); AST/SGOT 110 U/L (<34); BILIRUBIN,TOTAL 0.3 MG/DL (0.3-1.2); BLOOD UREA NITROGEN < 5 MG/DL (9-23); CALCIUM LEVEL 8.3 MG/DL (8.5-10.1); CARBON DIOXIDE LEVEL 29 MMOL/L (20-31); CHLORIDE LEVEL 102 MMOL/L (98-107); CHOLESTEROL LEVEL 175 MG/DL (<200); CHOLESTEROL RISK RATIO 2.34 (<5); CREATININE FOR GFR 0.46 MG/DL (0.55-1.30); GLOMERULAR FILTRATION RATE > 60.0 (>51); GLUCOSE, FASTING 87 MG/DL (60-100); HDL CHOLESTEROL 74.5 MG/DL (>40); LDL CHOLESTEROL 83.9 MG/DL (<100); NON-HDL-C 100.5 MG/DL; POTASSIUM SERUM 4.1 MMOL/L (3.5-5.1); SODIUM LEVEL 137 MMOL/L (136-145); TOTAL PROTEIN 6.5 G/DL (5.7-8.2); TRIGLYCERIDES LEVEL 83 MG/DL (<150)
[2023-03-21 04:11] LABS: % CD8 Pos Lymph 56.6 % (12.0-35.5); %CD4 Pos Lymphs 34.2 % (30.8-58.5); ABS Basophils 0.1 x10E3/uL (0.0-0.2); ABS Eosinophils 0.1 x10E3/uL (0.0-0.4); ABS Lymphs 2.5 x10E3/uL (0.7-3.1); ABS Monocytes 0.6 x10E3/uL (0.1-0.9); ABS Neutophils 3.7 x10E3/uL (1.4-7.0); Abs CD4 Helper 855 /uL (359-1519); Abs CD8 Suppres 1415 /uL (109-897); Eosinophils 2 % (Not Estab.); HCT 49.1 % (34.0-46.6); HGB 17.1 g/dL (11.1-15.9); HIV-1 RNA PCR QUANT 2 LC550285 <20 copies/mL (.); Immature Grans 0 % (Not Estab.); Lymphocytes 36 % (Not Estab.); MCH 34.1 pg (26.6-33.0); MCHC 34.8 g/dL (31.5-35.7); MCV 98 fL (79-97); Monocytes 8 % (Not Estab.); Neutrophils 53 % (Not Estab.); Platelets 194 x10E3/uL (150-450); RBC 5.01 x10E6/uL (3.77-5.28); RDW 12.3 % (11.7-15.4); WBC 6.9 x10E3/uL (3.4-10.8)
== END ==
LOC: M PLALAB 09:08
PROVIDERS: ATTEND Internal Medicine Infectious Disease
DX: B20 Human immunodeficiency virus [HIV] disease (principal); E78.5 Hyperlipidemia, unspecified; Z79.899 Other long term (current) drug therapy

== ENCOUNTER 2023-04-05 12:31 | Emergency (ER) | payer MEDICARE, OTHER ==
[~2023-04-05] VITALS: Ht 172.7 cm; Wt 71.6 kg
[~2023-04-05 12:31] MED LIST changes: -ABIL1TAB13 PO
[2023-04-05 13:51] LABS: HEMATOCRIT 49.4 % (36.0-47.0); HEMOGLOBIN 17.1 g/dl (12.0-15.5); MEAN CORPUSCULAR HEMOGLOBIN 33.4 pg (27.0-33.0); MEAN CORPUSCULAR HGB CONC 34.6 g/dl (32.0-36.5); MEAN CORPUSCULAR VOLUME 96.5 fl (80.0-96.0); PLATELET COUNT, AUTOMATED 137 10^3/uL (150-450); RED BLOOD COUNT 5.12 10^6/uL (4.00-5.40); WHITE BLOOD COUNT 4.9 10^3/uL (4.0-10.0)
[2023-04-05 14:45] LABS: ACETAMINOPHEN LEVEL < 2.0 UG/ML (10.0-20.0); SALICYLATE LEVEL < 3.0 MG/DL (<30)
[2023-04-05 15:01] LABS: ALBUMIN 3.4 G/DL (3.2-5.2); ALKALINE PHOSPHATASE 112 U/L (46-116); ALT/SGPT 124 U/L (7.0-40); AST/SGOT 174 U/L (<34); BILIRUBIN,DIRECT 0.2 MG/DL (<0.4); BILIRUBIN,TOTAL 0.4 MG/DL (0.3-1.2); BLOOD UREA NITROGEN < 5 MG/DL (9-23); CARBON DIOXIDE LEVEL 29 MMOL/L (20-31); CHLORIDE LEVEL 96 MMOL/L (98-107); CREATININE FOR GFR 0.39 MG/DL (0.55-1.30); ETHYL ALCOHOL (ETHANOL) 0.317 % (0.000-0.010); GLOMERULAR FILTRATION RATE > 60.0 (>51); GLUCOSE, FASTING 78 MG/DL (60-100); POTASSIUM SERUM 3.6 MMOL/L (3.5-5.1); SODIUM LEVEL 131 MMOL/L (136-145); THYROID STIMULATING HORMONE 1.767 uIU/ML (0.55-4.78); TOTAL PROTEIN 6.9 G/DL (5.7-8.2)
[2023-04-05] MEDS ORDERED: ISOVUE-370 76% 100ML VIAL As Ordered ONE (16:07)
[2023-04-05 17:49] LABS: AMPHETAMINES LEVEL URINE NEGATIVE (NEGATIVE); BARBITURATES URINE NEGATIVE (NEGATIVE); BENZODIAZEPINES URINE NEGATIVE (NEGATIVE); CANNABINOIDS URINE NEGATIVE (NEGATIVE); COCAINE METABOLITE URINE NEGATIVE (NEGATIVE); METHADONE URINE NEGATIVE (NEGATIVE); OPIATES URINE NEGATIVE (NEGATIVE); PHENCYCLIDINE URINE NEGATIVE (NEGATIVE)
[2023-04-05] MEDS: THIAMINE 100 MG TAB PO SCH (20:17)
[2023-04-05] MEDS: LORazepam 2 MG TAB PO PRN (20:55)
[2023-04-05] MEDS ORDERED: NICOTINE 21MG/24HR 1 EA TRANSDERMAL TD ONE (22:05)
[2023-04-06] MEDS: LORazepam 2 MG TAB PO PRN (01:26)
[2023-04-06] MEDS ORDERED: MULTIVITAMINS/MINERALS THERAP 1 TAB PO SCH (09:00)
[2023-04-06] MEDS ORDERED: FOLIC ACID 1MG TAB PO SCH (09:00)
[2023-04-06] MEDS: THIAMINE 100 MG TAB PO SCH (09:01)
[2023-04-06 11:42] VITALS: TEMP 98.3; O2SAT 95
[2023-04-06 11:58] VITALS: BP 136/88
[2023-04-06] MEDS ORDERED: ABIL1TAB13 PO (12:13)
== END 2023-04-06 12:31 | disposition home or self-care (01) ==
LOC: M ED 12:31
DX: F10.129 Alcohol abuse with intoxication, unspecified (principal); F32.A Depression, unspecified; Z91.51 Personal history of suicidal behavior; F17.200 Nicotine dependence, unspecified, uncomplicated; Z88.1 Allergy status to other antibiotic agents; Z88.8 Allergy status to other drugs, medicaments and biological substances; Z79.899 Other long term (current) drug therapy
CPT/HCPCS: 36415; 70491; 71045; 71275; 80048; 80076; 80143; 80307; 82077; 84443; 84484; 85027; 85379; 87635; 99284; Q9967

== ENCOUNTER 2023-05-16 08:24 | Day surgery (SDC) | payer MEDICARE, OTHER ==
[~2023-05-16] VITALS: Ht 172.7 cm; Wt 70.2 kg
[~2023-05-16 08:24] MED LIST changes: +ABIL1TAB13 PO; +LORA2TAB14 PO; +NS 1,000 ML IV ONE
[2023-05-16 10:12] VITALS: TEMP 96.7
[2023-05-16 10:35] VITALS: BP 155/68; O2SAT 97
[2023-05-16] MEDS ORDERED: propofoL 200 MG/20 ML VIAL As Ordered ONE (13:42)
== END 2023-05-16 10:47 | disposition home or self-care (01) ==
LOC: M OPP 08:24
PROVIDERS: ATTEND Internal Medicine Gastroenterology
DX: Z86.010 Personal history of colon polyps (principal); Z09 Encounter for follow-up examination after completed treatment for conditions other than malignant neoplasm; Z80.0 Family history of malignant neoplasm of digestive organs; D12.5 Benign neoplasm of sigmoid colon; K63.5 Polyp of colon; K57.30 Diverticulosis of large intestine without perforation or abscess without bleeding; K64.8 Other hemorrhoids; Z98.890 Other specified postprocedural states; F17.200 Nicotine dependence, unspecified, uncomplicated; Z79.02 Long term (current) use of antithrombotics/antiplatelets; Z79.899 Other long term (current) drug therapy; Z88.1 Allergy status to other antibiotic agents; Z88.8 Allergy status to other drugs, medicaments and biological substances; Z91.048 Other nonmedicinal substance allergy status

== ENCOUNTER → 2023-07-17 | Outpatient (CLI) | payer MEDICARE, MEDICAID ==
[~2023-07-17] MED LIST changes: -NS 1,000 ML IV ONE
== END ==
LOC: M WHC 08:10
PROVIDERS: ATTEND Nurse Practitioner Family
DX: Z12.31 Encounter for screening mammogram for malignant neoplasm of breast (principal)

== ENCOUNTER → 2023-10-24 | Outpatient (CLI) | payer MEDICARE, MEDICAID ==
[~2023-10-24] MED LIST changes: +TOPI-21 PO; -TOPI-254 PO
== END ==
LOC: M PLALAB 10:58
PROVIDERS: ATTEND Internal Medicine Infectious Disease
DX: B20 Human immunodeficiency virus [HIV] disease (principal)

== ENCOUNTER → 2023-10-24 | Outpatient (CLI) | payer MEDICARE, MEDICAID ==
[2023-10-24 15:33] LABS: ALBUMIN 3.5 G/DL (3.2-5.2); ALKALINE PHOSPHATASE 110 U/L (46-116); ALT/SGPT 36 U/L (7.0-40); AST/SGOT 55 U/L (<34); BILIRUBIN,TOTAL 0.3 MG/DL (0.3-1.2); BLOOD UREA NITROGEN 5 MG/DL (9-23); CALCIUM LEVEL 8.4 MG/DL (8.5-10.1); CARBON DIOXIDE LEVEL 28 MMOL/L (20-31); CHLORIDE LEVEL 103 MMOL/L (98-107); CHOLESTEROL LEVEL 172 MG/DL (<200); CHOLESTEROL RISK RATIO 2.85 (<5); CREATININE FOR GFR 0.46 MG/DL (0.55-1.30); GLOMERULAR FILTRATION RATE > 60.0 (>51); GLUCOSE, FASTING 97 MG/DL (60-100); HDL CHOLESTEROL 60.3 MG/DL (>40); LDL CHOLESTEROL 89.9 MG/DL (<100); NON-HDL-C 111.7 MG/DL; POTASSIUM SERUM 4.1 MMOL/L (3.5-5.1); SODIUM LEVEL 134 MMOL/L (136-145); TRIGLYCERIDES LEVEL 109 MG/DL (<150)
== END ==
LOC: M PLALAB 10:56
PROVIDERS: ATTEND Nurse Practitioner Family
DX: E78.5 Hyperlipidemia, unspecified (principal); E55.9 Vitamin D deficiency, unspecified; R74.8 Abnormal levels of other serum enzymes

== ENCOUNTER → 2024-03-15 | Outpatient (CLI) | payer MEDICARE, MEDICAID ==
[~2024-03-15] MED LIST changes: +BACT800T5 PO; +IBUP-1022 PO; -ROSU10TA6 PO; +ROSU10TA61 PO; -ZOLP12.518 PO; +ZOLP12.535 PO
[2024-03-15 15:43] LABS: BASO # 0.1 10^3/uL (0.0-0.2); BASO % 0.7 % (0.0-1.0); EOS # 0.2 10^3/uL (0.0-0.5); EOS % 2.5 % (0.0-3.0); HEMATOCRIT 42.1 % (36.0-47.0); HEMOGLOBIN 13.9 g/dl (12.0-15.5); LYMPH # 2.1 10^3/uL (1.5-5.0); MEAN CORPUSCULAR HEMOGLOBIN 34.7 pg (27.0-33.0); MONO # 0.5 10^3/uL (0.0-0.8); MONO % 7.5 % (2.0-8.0); NEUTROPHILS # 4.1 10^3/uL (1.5-8.5); PLATELET COUNT, AUTOMATED 117 10^3/uL (150-450); RED BLOOD COUNT 4.01 10^6/uL (4.00-5.40); WHITE BLOOD COUNT 6.9 10^3/uL (4.0-10.0)
[2024-03-15 15:47] LABS: ALBUMIN 3.3 G/DL (3.2-5.2); ALKALINE PHOSPHATASE 216 U/L (46-116); ALT/SGPT 73 U/L (7.0-40); AST/SGOT 166 U/L (<34); BILIRUBIN,TOTAL 0.4 MG/DL (0.3-1.2); BLOOD UREA NITROGEN 5 MG/DL (9-23); CALCIUM LEVEL 9.1 MG/DL (8.5-10.1); CARBON DIOXIDE LEVEL 30 MMOL/L (20-31); CHLORIDE LEVEL 105 MMOL/L (98-107); CHOLESTEROL LEVEL 228 MG/DL (<200); CHOLESTEROL RISK RATIO 3.41 (<5); CREATININE FOR GFR 0.44 MG/DL (0.55-1.30); GLOMERULAR FILTRATION RATE > 60.0 (>51); GLUCOSE, FASTING 91 MG/DL (60-100); HDL CHOLESTEROL 66.8 MG/DL (>40); LDL CHOLESTEROL 123.6 MG/DL (<100); NON-HDL-C 161.2 MG/DL; POTASSIUM SERUM 4.1 MMOL/L (3.5-5.1); SODIUM LEVEL 139 MMOL/L (136-145); TOTAL 25(OH) VITAMIN D 17.1 NG/ML (20.0-100.0); TOTAL PROTEIN 7.2 G/DL (5.7-8.2); TRIGLYCERIDES LEVEL 188 MG/DL (<150)
== END ==
LOC: M PLALAB 12:12
PROVIDERS: ATTEND Nurse Practitioner Family
DX: E78.5 Hyperlipidemia, unspecified (principal); F41.8 Other specified anxiety disorders; E55.9 Vitamin D deficiency, unspecified; F10.10 Alcohol abuse, uncomplicated

== ENCOUNTER → 2024-03-15 | Outpatient (CLI) | payer MEDICARE, MEDICAID ==
[2024-03-15 15:42] LABS: ALBUMIN 3.1 G/DL (3.2-5.2); ALKALINE PHOSPHATASE 221 U/L (46-116); ALT/SGPT 73 U/L (7.0-40); AST/SGOT 164 U/L (<34); BILIRUBIN,TOTAL 0.4 MG/DL (0.3-1.2); BLOOD UREA NITROGEN 6 MG/DL (9-23); CALCIUM LEVEL 8.9 MG/DL (8.5-10.1); CARBON DIOXIDE LEVEL 30 MMOL/L (20-31); CHLORIDE LEVEL 106 MMOL/L (98-107); CREATININE FOR GFR 0.46 MG/DL (0.55-1.30); GLOMERULAR FILTRATION RATE > 60.0 (>51); GLUCOSE, FASTING 93 MG/DL (60-100); POTASSIUM SERUM 4.2 MMOL/L (3.5-5.1); SODIUM LEVEL 140 MMOL/L (136-145); TOTAL PROTEIN 7.3 G/DL (5.7-8.2)
[2024-03-19 16:12] LABS: HIV-1 RNA PCR QUANT 2 64 copies/mL (NOT DETECTED); HIV-1 RNA PCR QUANT 3 1.81 (NOT DETECTED)
[2024-03-19 16:22] LABS: % CD4 28 % (30-61); %CD8 60 % (12-42); ABSOLUTE CD4 CELLS 594 cells/uL (490-1740); ABSOLUTE CD8 CELLS 1289 cells/uL (180-1170); ABSOLUTE LYMPHOCYTES 2145 cells/uL (850-3900); CD4 CD8 RATIO 0.47 (0.86-5.00)
== END ==
LOC: M PLALAB 12:09
PROVIDERS: ATTEND Internal Medicine Infectious Disease
DX: B20 Human immunodeficiency virus [HIV] disease (principal); E78.5 Hyperlipidemia, unspecified; F41.8 Other specified anxiety disorders; E55.9 Vitamin D deficiency, unspecified; F10.10 Alcohol abuse, uncomplicated

== ENCOUNTER → 2024-04-08 | Outpatient (CLI) | payer MEDICARE, MEDICAID | LOC: M RAD 10:07 | PROVIDERS: ATTEND Internal Medicine Infectious Disease | DX: Z12.2 Encounter for screening for malignant neoplasm of respiratory organs (principal); F17.210 Nicotine dependence, cigarettes, uncomplicated ==

== ENCOUNTER → 2024-05-09 | Outpatient (CLI) | payer MEDICARE, MEDICAID ==
[2024-05-09 15:41] LABS: BASO # 0.1 10^3/uL (0.0-0.2); BASO % 0.6 % (0.0-1.0); EOS # 0.1 10^3/uL (0.0-0.5); HEMATOCRIT 42.9 % (36.0-47.0); HEMOGLOBIN 14.5 g/dl (12.0-15.5); LYMPH # 1.7 10^3/uL (1.5-5.0); MEAN CORPUSCULAR HEMOGLOBIN 34.8 pg (27.0-33.0); MEAN CORPUSCULAR HGB CONC 33.8 g/dl (32.0-36.5); MEAN CORPUSCULAR VOLUME 102.9 fl (80.0-96.0); MONO # 0.6 10^3/uL (0.0-0.8); MONO % 6.7 % (2.0-8.0); NEUTROPHILS # 5.8 10^3/uL (1.5-8.5); NEUTROPHILS % 70.3 % (36.0-66.0); PLATELET COUNT, AUTOMATED 134 10^3/uL (150-450); RED BLOOD COUNT 4.17 10^6/uL (4.00-5.40); WHITE BLOOD COUNT 8.2 10^3/uL (4.0-10.0)
[2024-05-09 16:11] LABS: VITAMIN B12 LEVEL 940 PG/ML (211-911)
[2024-05-09 16:17] LABS: ALKALINE PHOSPHATASE 366 U/L (46-116); ALT/SGPT 87 U/L (7.0-40); AST/SGOT 211 U/L (<34); BILIRUBIN,TOTAL 0.8 MG/DL (0.3-1.2); BLOOD UREA NITROGEN < 5 MG/DL (9-23); CALCIUM LEVEL 8.3 MG/DL (8.5-10.1); CARBON DIOXIDE LEVEL 28 MMOL/L (20-31); CHLORIDE LEVEL 105 MMOL/L (98-107); CREATININE FOR GFR 0.44 MG/DL (0.55-1.30); GLOMERULAR FILTRATION RATE > 60.0 (>51); GLUCOSE, FASTING 87 MG/DL (60-100); POTASSIUM SERUM 4.2 MMOL/L (3.5-5.1); SODIUM LEVEL 138 MMOL/L (136-145); TOTAL PROTEIN 7.2 G/DL (5.7-8.2)
[2024-05-09 16:18] LABS: ERYTHROCYTE SEDIMENTATION RATE 78 mm/hr (0-30)
[2024-05-13 17:33] LABS: IgG P18 AB NON-REACTIVE; IgG P23 AB NON-REACTIVE; IgG P28 AB NON-REACTIVE; IgG P30 AB NON-REACTIVE; IgG P39 AB NON-REACTIVE; IgG P41 AB NON-REACTIVE; IgG P45 AB NON-REACTIVE; IgG P58 AB REACTIVE; IgG P66 AB NON-REACTIVE; IgG P93 AB REACTIVE; IgM P23 AB NON-REACTIVE; IgM P39 AB NON-REACTIVE; IgM P41 AB NON-REACTIVE; LYME IgG WB INTERPRETATION NEGATIVE (NEGATIVE); LYME IgM WB INTERPRETATION NEGATIVE (NEGATIVE)
== END ==
LOC: M PLALAB 13:50
PROVIDERS: ATTEND Nurse Practitioner Family
DX: R51.9 Headache, unspecified (principal); M79.10 Myalgia, unspecified site; B20 Human immunodeficiency virus [HIV] disease

== ENCOUNTER → 2024-05-22 | Outpatient (CLI) | payer MEDICARE, MEDICAID | LOC: M RAD 07:59 | PROVIDERS: ATTEND Internal Medicine Infectious Disease | DX: R51.9 Headache, unspecified (principal) ==

== ENCOUNTER 2024-05-30 11:32 | Inpatient (IN) | payer MEDICARE, MEDICAID ==
[~2024-05-30] VITALS: Ht 172.7 cm; Wt 72.0 kg
[2024-05-30] MEDS ORDERED: LORazepam 2 MG TAB PO PRN (12:40)
[2024-05-30 13:18] LABS: HEMATOCRIT 42.6 % (36.0-47.0); HEMOGLOBIN 14.1 g/dl (12.0-15.5); MEAN CORPUSCULAR HEMOGLOBIN 34.3 pg (27.0-33.0); MEAN CORPUSCULAR HGB CONC 33.1 g/dl (32.0-36.5); MEAN CORPUSCULAR VOLUME 103.6 fl (80.0-96.0); PLATELET COUNT, AUTOMATED 119 10^3/uL (150-450); RED BLOOD COUNT 4.11 10^6/uL (4.00-5.40); WHITE BLOOD COUNT 6.1 10^3/uL (4.0-10.0)
[2024-05-30] MEDS: NICOTINE 21MG/24HR 1 EA TRANSDERMAL TD ONE (13:24)
[2024-05-30] MEDS: DOXYCYCLINE HYCLATE 100MG TABLET PO ONE (13:24)
[2024-05-30 13:46] LABS: ETHYL ALCOHOL (ETHANOL) 0.212 % (0.000-0.010)
[2024-05-30 13:48] LABS: SALICYLATE LEVEL < 3.0 MG/DL (<30)
[2024-05-30 13:54] LABS: ALBUMIN 2.7 G/DL (3.2-5.2); ALKALINE PHOSPHATASE 468 U/L (46-116); ALT/SGPT 89 U/L (7.0-40); AST/SGOT 256 U/L (<34); BILIRUBIN,DIRECT 0.4 MG/DL (<0.4); BILIRUBIN,TOTAL 0.7 MG/DL (0.3-1.2); BLOOD UREA NITROGEN < 5 MG/DL (9-23); CALCIUM LEVEL 8.2 MG/DL (8.5-10.1); CARBON DIOXIDE LEVEL 31 MMOL/L (20-31); CHLORIDE LEVEL 103 MMOL/L (98-107); CREATININE FOR GFR 0.39 MG/DL (0.55-1.30); GLOMERULAR FILTRATION RATE > 60.0 (>51); GLUCOSE, FASTING 85 MG/DL (60-100); MAGNESIUM LEVEL 1.8 MG/DL (1.8-2.4); POTASSIUM SERUM 3.9 MMOL/L (3.5-5.1); SODIUM LEVEL 137 MMOL/L (136-145); THYROID STIMULATING HORMONE 7.144 uIU/ML (0.55-4.78); TOTAL PROTEIN 7.3 G/DL (5.7-8.2)
[2024-05-30] MEDS: GABAPENTIN 300 MG CAP PO ONE (15:14)
[2024-05-30 16:10] LABS: AMPHETAMINES LEVEL URINE NEGATIVE (NEGATIVE); BARBITURATES URINE NEGATIVE (NEGATIVE); BENZODIAZEPINES URINE NEGATIVE (NEGATIVE); COCAINE METABOLITE URINE NEGATIVE (NEGATIVE)
[2024-05-30 16:11] LABS: CANNABINOIDS URINE NEGATIVE (NEGATIVE); METHADONE URINE NEGATIVE (NEGATIVE); OPIATES URINE NEGATIVE (NEGATIVE); PHENCYCLIDINE URINE NEGATIVE (NEGATIVE)
[2024-05-30] MEDS ORDERED: ZOLP10TA2 PO (16:44)
[2024-05-30] MEDS ORDERED: ALBU8.5H INH (16:44)
[2024-05-30] MEDS ORDERED: GABA-282 PO (16:44)
[2024-05-30] MEDS ORDERED: HOME MED LIST COMPLETE! XX SCH (16:45)
[2024-05-30] MEDS ORDERED: diphenhydrAMINE 25MG CAP PO PRN (18:50)
[2024-05-30] MEDS ORDERED: MAALOX 30 ML SUSP *UDC PO PRN (18:50)
[2024-05-30] MEDS ORDERED: IBUPROFEN 400MG TAB PO PRN (18:50)
[2024-05-30] MEDS ORDERED: MOM 30ML SUSPENSION UDC PO PRN (18:50)
[2024-05-30] MEDS ORDERED: ALBUTEROL 90 MCG/ACT 8GM HFA INHALER INH PRN (18:50)
[2024-05-30] MEDS: LORazepam 2 MG TAB PO PRN (19:24)
[2024-05-30] MEDS ORDERED: THIAMINE 100 MG TAB PO SCH (21:00)
[2024-05-30 21:52] VITALS: BP 182/83; TEMP 92; O2SAT 94
[2024-05-30] MEDS: THIAMINE 100 MG TAB PO SCH (22:13)
[2024-05-30] MEDS: ARIPiprazole 2 MG TAB PO SCH (22:13)
[2024-05-30] MEDS: GABAPENTIN 300 MG CAP PO SCH (22:13)
[2024-05-30] MEDS: zolPIDEM TARTRATE 5 MG TAB PO PRN (22:54)
[2024-05-31] VITALS (10 sets, daily range): BP systolic 112–168; BP diastolic 67–85; TEMP 97–99.4; O2SAT 92–97
[2024-05-31] MEDS: FOLIC ACID 1MG TAB PO SCH (08:28)
[2024-05-31] MEDS: MULTIVITAMINS/MINERALS THERAP 1 TAB PO SCH (08:28)
[2024-05-31] MEDS: CitaloPRAM (CeleXA) 20 MG TAB PO SCH (08:29)
[2024-05-31] MEDS: ACETAMINOPHEN TAB 650MG DOSE (2X325MG) PO PRN (08:33)
[2024-05-31] MEDS ORDERED: MULTIVITAMINS/MINERALS THERAP 1 TAB PO SCH (09:00)
[2024-05-31] MEDS ORDERED: FOLIC ACID 1MG TAB PO SCH (09:00)
[2024-05-31] MEDS: NICOTINE 21MG/24HR 1 EA TRANSDERMAL TD SCH (09:58)
[2024-05-31 13:48] LABS: FREE T4 1.09 NG/DL (0.89-1.76); THYROID STIMULATING HORMONE 8.007 uIU/ML (0.55-4.78)
[2024-05-31] MEDS: ONDANSETRON 4MG ORAL DISINTEGRATING TAB SL PRN (13:52)
[2024-05-31 14:05] LABS: HEPATITIS B SURFACE ANTIGEN NEGATIVE (NEGATIVE)
[2024-05-31 14:27] LABS: HEPATITIS B CORE ANTIBODY IGM NEGATIVE (NEGATIVE); HEPATITIS C VIRUS ABY INDEX 0.06 INDEX (<0.8)
[2024-05-31] MEDS: OXAZEPAM 10MG CAP PO SCH (14:49)
[2024-06-01] VITALS (7 sets, daily range): BP systolic 118–141; BP diastolic 77–90; TEMP 96.8–98.6; O2SAT 96–98
[2024-06-01] MEDS: OXAZEPAM 10MG CAP PO SCH (13:40)
[2024-06-01] MEDS: IBUPROFEN 400MG TAB PO PRN (13:45)
[2024-06-01] MEDS: EXCEDRIN MIGRAINE TABLET PO ONE (23:58)
[2024-06-02 06:08] VITALS: BP 120/67; TEMP 97; O2SAT 95
[2024-06-02 07:43] VITALS: BP 137/77
[2024-06-02] MEDS ORDERED: diphenhydrAMINE 50MG CAP PO PRN (12:05)
[2024-06-02 14:10] VITALS: BP 109/63
[2024-06-02 16:30] VITALS: BP 109/63; TEMP 96.8; O2SAT 96
[2024-06-02 22:00] VITALS: BP 137/77
[2024-06-03 05:51] VITALS: BP 126/62; TEMP 98; O2SAT 96
[2024-06-03 06:00] VITALS: BP 126/62
[2024-06-03 08:15] VITALS: BP 111/59
[2024-06-03 15:51] VITALS: BP 132/80; TEMP 97.6; O2SAT 96
[2024-06-04 06:29] VITALS: BP 142/69; TEMP 97.8; O2SAT 99
[2024-06-04] MEDS ORDERED: ROLLMIS8 XX (07:54)
== END 2024-06-04 11:06 | disposition home or self-care (01) | DRG 885 ==
LOC: M ED 11:32 → M ED INP 18:48 → M PSY 21:45
PROVIDERS: ADMIT Psychiatry & Neurology Psychiatry; ATTEND Internal Medicine
DX: F33.9 Major depressive disorder, recurrent, unspecified (principal); B20 Human immunodeficiency virus [HIV] disease; F10.10 Alcohol abuse, uncomplicated; F41.1 Generalized anxiety disorder; Z88.8 Allergy status to other drugs, medicaments and biological substances; Z79.899 Other long term (current) drug therapy; K76.0 Fatty (change of) liver, not elsewhere classified; F17.200 Nicotine dependence, unspecified, uncomplicated; L40.8 Other psoriasis; Z95.2 Presence of prosthetic heart valve

== ENCOUNTER → 2024-09-23 | Outpatient (CLI) | payer MEDICARE, MEDICAID ==
[~2024-09-23] MED LIST changes: +ALBU8.5H INH; +GABA-1172 PO; -GABA-282 PO; +ROLLMIS8 XX; +ZOLP10TA2 PO
== END ==
LOC: M RAD 15:01
PROVIDERS: ATTEND Nurse Practitioner Family
DX: R60.0 Localized edema (principal)

== ENCOUNTER → 2024-09-30 | Outpatient (CLI) | payer MEDICARE, MEDICAID ==
[~2024-09-30] MED LIST changes: +NALT50TA4; +NAPR-885; +ROSU20TA86
[2024-09-30 15:52] LABS: URIC ACID 6.1 MG/DL (3.1-7.8)
[2024-09-30 15:55] LABS: C REACTIVE PROTEIN QUANTITATIV 0.51 MG/DL (<1.0)
[2024-09-30 16:03] LABS: BASO % 0.4 % (0.0-1.0); EOS # 0.3 10^3/uL (0.0-0.5); HEMATOCRIT 37.3 % (36.0-47.0); HEMOGLOBIN 12.7 g/dl (12.0-15.5); LYMPH % 35.5 % (24.0-44.0); MEAN CORPUSCULAR HEMOGLOBIN 33.2 pg (27.0-33.0); MEAN CORPUSCULAR VOLUME 97.6 fl (80.0-96.0); MONO # 0.5 10^3/uL (0.0-0.8); NEUTROPHILS # 4.5 10^3/uL (1.5-8.5); NEUTROPHILS % 53.7 % (36.0-66.0); PLATELET COUNT, AUTOMATED 240 10^3/uL (150-450); RED BLOOD COUNT 3.82 10^6/uL (4.00-5.40); WHITE BLOOD COUNT 8.3 10^3/uL (4.0-10.0)
[2024-09-30 16:08] LABS: ERYTHROCYTE SEDIMENTATION RATE 30 mm/hr (0-30)
[2024-10-01 14:07] LABS: % CD4+ LYMPHS 40.6 % (30.8-58.5); ABSOLUTE CD4 HELPER 1218 /uL (359-1519); BASOPHILS 1 % (Not Estab.); EOSINOPHILS 5 % (Not Estab.); EOSINOPHILS ABSOLUTE 0.4 x10E3/uL (0.0-0.4); HCT 37.5 % (34.0-46.6); HGB 12.9 g/dL (11.1-15.9); LYMPHOCYTES 35 % (Not Estab.); MCH 33.4 pg (26.6-33.0); MCHC 34.4 g/dL (31.5-35.7); MCV 97 fL (79-97); MONOCYTES 6 % (Not Estab.); MONOCYTES ABSOLUTE 0.5 x10E3/uL (0.1-0.9); NEUTROPHILS 53 % (Not Estab.); NEUTROPHILS ABSOLUTE 4.6 x10E3/uL (1.4-7.0); PLT 256 x10E3/uL (150-450); RBC 3.86 x10E6/uL (3.77-5.28); RDW 12.3 % (11.7-15.4); WBC 8.6 x10E3/uL (3.4-10.8)
[2024-10-03 11:53] LABS: HIV-1 RNA PCR QUANT 3 1.72 (NOT DETECTED)
== END ==
LOC: M PLALAB 11:53
PROVIDERS: ATTEND Internal Medicine Infectious Disease
DX: M79.671 Pain in right foot (principal); B20 Human immunodeficiency virus [HIV] disease

== ENCOUNTER 2024-10-02 17:29 | Emergency (ER) | payer MEDICARE, MEDICAID ==
[~2024-10-02 17:29] MED LIST changes: -FLUO0.0118 TOP; -FLUO0.0119 TOP; +FLUO0.0126 TOP; +FLUO0.0131 TOP; -NALT50TA4; -NAPR-885; -ROSU20TA86
[2024-10-02] MEDS ORDERED: ISOVUE-370 76% 100ML VIAL As Ordered ONE (18:02)
[2024-10-02] MEDS: LORazepam 2 MG/ML 1ML VIAL IV STA (18:07)
[2024-10-02 18:08] LABS: HEMATOCRIT 37.1 % (36.0-47.0); HEMOGLOBIN 12.6 g/dl (12.0-15.5); MEAN CORPUSCULAR HEMOGLOBIN 32.7 pg (27.0-33.0); MEAN CORPUSCULAR VOLUME 96.4 fl (80.0-96.0); PLATELET COUNT, AUTOMATED 222 10^3/uL (150-450); RED BLOOD COUNT 3.85 10^6/uL (4.00-5.40); WHITE BLOOD COUNT 9.4 10^3/uL (4.0-10.0)
[2024-10-02 18:18] LABS: INR 0.93; PARTIAL THROMBOPLASTIN TIME 39.3 SECONDS (24.8-34.2); PROTHROMBIN TIME 12.8 SECONDS (12.5-14.5)
[2024-10-02 18:27] LABS: CK-MB VALUE MASS 1.7 NG/ML (<3.6); LIPASE 67 U/L (12-53)
[2024-10-02] MEDS ORDERED: NALT50TA4 (18:29)
[2024-10-02] MEDS ORDERED: ROSU20TA86 (18:29)
[2024-10-02] MEDS ORDERED: NAPR-885 (18:29)
[2024-10-02 18:30] LABS: CPK CREATINE PHOSPHOKINASE 159 U/L (34-145); MB/CK RELATIVE INDEX 1.06 (< OR =4)
[2024-10-02 18:32] LABS: FREE T4 0.76 NG/DL (0.89-1.76); THYROID STIMULATING HORMONE 3.416 uIU/ML (0.55-4.78)
[2024-10-02 18:33] LABS: ALBUMIN 3.8 G/DL (3.2-5.2); ALKALINE PHOSPHATASE 97 U/L (35-104); ALT/SGPT 17 U/L (7.0-40); AST/SGOT 24 U/L (<34); BILIRUBIN,DIRECT 0.1 MG/DL (<0.4); BILIRUBIN,TOTAL 0.4 MG/DL (0.3-1.2); BLOOD UREA NITROGEN < 5 MG/DL (9-23); CALCIUM LEVEL 9.5 MG/DL (8.5-10.1); CARBON DIOXIDE LEVEL 29 MMOL/L (20-31); CHLORIDE LEVEL 98 MMOL/L (98-107); CREATININE FOR GFR 0.58 MG/DL (0.55-1.30); GLOMERULAR FILTRATION RATE > 60.0 (>51); GLUCOSE, FASTING 96 MG/DL (60-100); SODIUM LEVEL 132 MMOL/L (136-145); TOTAL PROTEIN 7.1 G/DL (5.7-8.2)
[2024-10-02 18:35] LABS: ATYPICAL LYMPH 1 % (0-5); EOSINOPHILS 7 % (0-3); LYMPHOCYTES 44 % (16-44); MONOCYTES 3 % (0-5); NEUTROPHILS 45 % (28-66); PLATELET ESTIMATE NORMAL (NORMAL)
[2024-10-02 18:43] LABS: APPEARANCE, URINE CLEAR (CLEAR); BACTERIA, URINE AUTO NEGATIVE (NEGATIVE); BILIRUBIN, URINE AUTO NEGATIVE (NEGATIVE); BLOOD, URINE BLOOD NEGATIVE (NEGATIVE); COLOR, URINE STRAW (YELLOW); GLUCOSE, URINE (UA) AUTO NEGATIVE (NEGATIVE); KETONE, URINE AUTO NEGATIVE (NEGATIVE); LEUKOCYTE ESTERASE, URINE AUTO NEGATIVE (NEGATIVE); NITRITE, URINE AUTO NEGATIVE (NEGATIVE); PROTEIN, URINE AUTO NEGATIVE (NEGATIVE); RBC, URINE AUTO 0 /HPF (0-3); SPECIFIC GRAVITY URINE AUTO 1.008 (1.002-1.035); SQUAMOUS EPITHELIAL CELL UR AU 2 /HPF (0-6); UROBILINOGEN, URINE AUTO 0.2 mg/dL (0.0-2.0); WBC, URINE AUTO 0 /HPF (0-3)
[2024-10-02] MEDS: NS (Normal Saline) 0.9% 1,000 ML IV ONE (18:53)
[2024-10-02 19:22] LABS: CK-MB VALUE MASS 2.1 NG/ML (<3.6)
[2024-10-02 19:23] LABS: MB/CK RELATIVE INDEX 1.4 (< OR =4)
[2024-10-02 20:00] VITALS: BP 143/65; TEMP 97.3; O2SAT 98
== END 2024-10-02 20:06 | disposition home or self-care (01) ==
LOC: M ED 17:29
DX: J09.X2 Influenza due to identified novel influenza A virus with other respiratory manifestations (principal); Z79.899 Other long term (current) drug therapy; Z88.1 Allergy status to other antibiotic agents; Z88.8 Allergy status to other drugs, medicaments and biological substances; Z91.89 Other specified personal risk factors, not elsewhere classified
CPT/HCPCS: 70450; 70496; 70498; 71045; 80047; 80048; 80076; 81001; 82550; 82553; 83690; 84439; 84443; 84484; 85025; 85610; 85730; 87400; 93005; 93041; 94760; 96361; 96374; 99285; J2060; Q9967

== ENCOUNTER → 2024-10-21 | Outpatient (CLI) | payer MEDICARE, MEDICAID ==
[~2024-10-21] MED LIST changes: +FLUO0.0118 TOP; +FLUO0.0119 TOP; -FLUO0.0126 TOP; -FLUO0.0131 TOP; +NALT50TA4; +NAPR-885; +ROSU20TA86
== END ==
LOC: M PLAIMG 10:10
PROVIDERS: ATTEND Internal Medicine Infectious Disease
DX: M79.671 Pain in right foot (principal); R60.0 Localized edema

== ENCOUNTER 2025-01-03 11:13 | Emergency (ER) | payer MEDICARE, MEDICAID ==
[~2025-01-03] VITALS: Ht 172.7 cm; Wt 86.0 kg
[~2025-01-03 11:13] MED LIST changes: -FLUO0.0118 TOP; -FLUO0.0119 TOP; +FLUO0.0126 TOP; +FLUO0.0131 TOP
[2025-01-03 11:30] VITALS: TEMP 97.9
[2025-01-03 11:52] LABS: BASO % 0.3 % (0.0-1.0); EOS # 0.2 10^3/uL (0.0-0.5); EOS % 2.5 % (0.0-3.0); HEMATOCRIT 38.7 % (36.0-47.0); HEMOGLOBIN 13.1 g/dl (12.0-15.5); LYMPH # 3.4 10^3/uL (1.5-5.0); LYMPH % 39.2 % (24.0-44.0); MEAN CORPUSCULAR HEMOGLOBIN 32.1 pg (27.0-33.0); MEAN CORPUSCULAR HGB CONC 33.9 g/dl (32.0-36.5); MEAN CORPUSCULAR VOLUME 94.9 fl (80.0-96.0); MONO # 0.6 10^3/uL (0.0-0.8); MONO % 7.3 % (2.0-8.0); NEUTROPHILS # 4.4 10^3/uL (1.5-8.5); NEUTROPHILS % 50.4 % (36.0-66.0); PLATELET COUNT, AUTOMATED 265 10^3/uL (150-450); RED BLOOD COUNT 4.08 10^6/uL (4.00-5.40); WHITE BLOOD COUNT 8.7 10^3/uL (4.0-10.0)
[2025-01-03 12:05] LABS: INR 0.88; PARTIAL THROMBOPLASTIN TIME 36.2 SECONDS (24.8-34.2); PROTHROMBIN TIME 12.2 SECONDS (12.5-14.5)
[2025-01-03 12:11] LABS: CK-MB VALUE MASS 1.1 NG/ML (<3.6); LIPASE 36 U/L (12-53)
[2025-01-03 12:12] LABS: CPK CREATINE PHOSPHOKINASE 129 U/L (34-145); MB/CK RELATIVE INDEX 0.85 (< OR =4)
[2025-01-03 12:15] LABS: THYROID STIMULATING HORMONE 1.774 uIU/ML (0.55-4.78)
[2025-01-03 12:16] LABS: ALBUMIN 3.8 G/DL (3.2-5.2); ALKALINE PHOSPHATASE 90 U/L (35-104); ALT/SGPT 20 U/L (7.0-40); AST/SGOT 22 U/L (<34); BILIRUBIN,DIRECT 0.1 MG/DL (<0.4); BILIRUBIN,TOTAL 0.3 MG/DL (0.3-1.2); BLOOD UREA NITROGEN < 5 MG/DL (9-23); CALCIUM LEVEL 9.1 MG/DL (8.5-10.1); CARBON DIOXIDE LEVEL 30 MMOL/L (20-31); CHLORIDE LEVEL 102 MMOL/L (98-107); CREATININE FOR GFR 0.55 MG/DL (0.55-1.30); GLOMERULAR FILTRATION RATE > 60.0 (>51); GLUCOSE, FASTING 87 MG/DL (60-100); POTASSIUM SERUM 3.9 MMOL/L (3.5-5.1); SODIUM LEVEL 137 MMOL/L (136-145); TOTAL PROTEIN 7.5 G/DL (5.7-8.2)
[2025-01-03 12:30] VITALS: BP 128/94
[2025-01-03 12:41] LABS: D-DIMER QUANT 0.58 ug/mL (<0.5)
[2025-01-03] MEDS: METOCLOPRAMIDE INJ 10MG/2ML VIAL IV ONE (12:46)
[2025-01-03] MEDS: PANTOPRAZOLE 40MG VIAL IV ONE (12:46)
[2025-01-03] MEDS: KETOROLAC 30 MG/ML 1ML VIAL IV ONE (12:46)
[2025-01-03] MEDS ORDERED: ISOVUE-370 76% 100ML VIAL As Ordered ONE (12:58)
[2025-01-03 15:28] VITALS: O2SAT 84
== END 2025-01-03 15:54 | disposition home or self-care (01) ==
LOC: M ED 11:13
DX: R07.89 Other chest pain (principal); B20 Human immunodeficiency virus [HIV] disease; I10 Essential (primary) hypertension; E78.5 Hyperlipidemia, unspecified; K57.92 Diverticulitis of intestine, part unspecified, without perforation or abscess without bleeding; F41.9 Anxiety disorder, unspecified; F32.A Depression, unspecified; F17.200 Nicotine dependence, unspecified, uncomplicated; Z98.61 Coronary angioplasty status; Z79.899 Other long term (current) drug therapy; Z91.89 Other specified personal risk factors, not elsewhere classified; Z88.1 Allergy status to other antibiotic agents
CPT/HCPCS: 36415; 71045; 71275; 80048; 80076; 82550; 82553; 83690; 84439; 84443; 84484; 85025; 85379; 85610; 85730; 93005; 93041; 93971; 94760; 96374; 96375; 99285; J1885; J2470; J2765; Q9967

== ENCOUNTER → 2025-01-07 | Outpatient (REF) | payer MEDICARE, MEDICAID ==
[2025-01-07 15:14] LABS: CHOLESTEROL RISK RATIO 3.87 (<5); HDL CHOLESTEROL 36.9 MG/DL (>40); LDL CHOLESTEROL 28.9 MG/DL (<100); NON-HDL-C 106.1 MG/DL
== END ==
LOC: M LAB REF 14:19
PROVIDERS: ATTEND Nurse Practitioner Family
DX: E66.3 Overweight (principal); Z79.899 Other long term (current) drug therapy

== ENCOUNTER → 2025-01-30 | Outpatient (CLI) | payer MEDICARE, MEDICAID ==
[~2025-01-30] MED LIST changes: -AMBI10TA PO; -AMBI5TAB PO; +ZOLP-532 PO; +ZOLP-533 PO
[2025-01-30 15:56] LABS: ALBUMIN 3.8 G/DL (3.2-5.2); ALKALINE PHOSPHATASE 146 U/L (35-104); ALT/SGPT 55 U/L (7.0-40); AST/SGOT 37 U/L (<34); BILIRUBIN,TOTAL 0.4 MG/DL (0.3-1.2); BLOOD UREA NITROGEN 10 MG/DL (9-23); CALCIUM LEVEL 8.9 MG/DL (8.5-10.1); CARBON DIOXIDE LEVEL 22 MMOL/L (20-31); CHLORIDE LEVEL 106 MMOL/L (98-107); GLOMERULAR FILTRATION RATE > 90.0 (>51); GLUCOSE, FASTING 86 MG/DL (60-100); POTASSIUM SERUM 4.3 MMOL/L (3.5-5.1); SODIUM LEVEL 136 MMOL/L (136-145); TOTAL PROTEIN 7.6 G/DL (5.7-8.2)
[2025-02-02 01:42] LABS: % CD4 39 % (30-61); %CD8 50 % (12-42); ABSOLUTE CD4 CELLS 1198 cells/uL (490-1740); ABSOLUTE CD8 CELLS 1545 cells/uL (180-1170); ABSOLUTE LYMPHOCYTES 3104 cells/uL (850-3900); CD4 CD8 RATIO 0.78 (0.86-5.00)
== END ==
LOC: M PLALAB 13:51
PROVIDERS: ATTEND Internal Medicine Infectious Disease
DX: B20 Human immunodeficiency virus [HIV] disease (principal)

== ENCOUNTER → 2025-02-05 | Outpatient (CLI) | payer MEDICARE, MEDICAID ==
[2025-02-05 15:27] LABS: CHOLESTEROL RISK RATIO 3.38 (<5); HDL CHOLESTEROL 42.5 MG/DL (>40); LDL CHOLESTEROL 68.9 MG/DL (<100); NON-HDL-C 101.5 MG/DL
== END ==
LOC: M PLALAB 11:15
PROVIDERS: ATTEND Nurse Practitioner Family
DX: E78.1 Pure hyperglyceridemia (principal)

== ENCOUNTER → 2025-04-15 | Outpatient (REF) | payer MEDICARE, MEDICAID ==
[2025-04-15 13:10] LABS: APPEARANCE, URINE CLEAR (CLEAR); BACTERIA, URINE AUTO NEGATIVE (NEGATIVE); BILIRUBIN, URINE AUTO NEGATIVE (NEGATIVE); BLOOD, URINE BLOOD NEGATIVE (NEGATIVE); GLUCOSE, URINE (UA) AUTO NEGATIVE (NEGATIVE); KETONE, URINE AUTO NEGATIVE (NEGATIVE); LEUKOCYTE ESTERASE, URINE AUTO NEGATIVE (NEGATIVE); NITRITE, URINE AUTO NEGATIVE (NEGATIVE); PROTEIN, URINE AUTO NEGATIVE (NEGATIVE); RBC, URINE AUTO 0 /HPF (0-3); SPECIFIC GRAVITY URINE AUTO 1.004 (1.002-1.035); SQUAMOUS EPITHELIAL CELL UR AU 0 /HPF (0-6); UROBILINOGEN, URINE AUTO 0.2 mg/dL (0.0-2.0); WBC, URINE AUTO 0 /HPF (0-3)
== END ==
LOC: M LAB REF 12:29
PROVIDERS: ATTEND Nurse Practitioner Family
DX: R10.31 Right lower quadrant pain (principal)

== ENCOUNTER → 2025-04-16 | Outpatient (CLI) | payer MEDICARE, MEDICAID | LOC: M WHC 09:10 | PROVIDERS: ATTEND Nurse Practitioner Family | DX: R10.31 Right lower quadrant pain (principal) ==

== ENCOUNTER → 2025-04-16 | Outpatient (CLI) | payer MEDICARE, MEDICAID ==
[2025-04-16 10:40] LABS: BASO # 0.0 10^3/uL (0.0-0.2); BASO % 0.4 % (0.0-1.0); EOS # 0.2 10^3/uL (0.0-0.5); EOS % 1.8 % (0.0-3.0); LYMPH # 3.3 10^3/uL (1.5-5.0); LYMPH % 33.0 % (24.0-44.0); MONO # 0.7 10^3/uL (0.0-0.8); MONO % 6.8 % (2.0-8.0); NEUTROPHILS # 5.8 10^3/uL (1.5-8.5); NEUTROPHILS % 57.8 % (36.0-66.0); PLATELET COUNT, AUTOMATED 249 10^3/uL (150-450)
[2025-04-16 10:45] LABS: ERYTHROCYTE SEDIMENTATION RATE 28 mm/hr (0-30)
== END ==
LOC: M PLALAB 09:11
PROVIDERS: ATTEND Nurse Practitioner Family
DX: R10.31 Right lower quadrant pain (principal)

== ENCOUNTER → 2025-04-18 | Outpatient (REF) | payer MEDICARE | LOC: M PLALAB 15:47 | PROVIDERS: ATTEND Specialist | DX: R87.622 Low grade squamous intraepithelial lesion on cytologic smear of vagina (LGSIL) (principal) ==

== ENCOUNTER 2025-05-13 13:52 | Emergency (ER) | payer MEDICARE, MEDICAID ==
[~2025-05-13] VITALS: Ht 172.7 cm; Wt 85.5 kg
[~2025-05-13 13:52] MED LIST changes: +CABO6SUS INJ; -ROSU20TA86; +ROSU20TA86 PO
[2025-05-13 15:03] LABS: PLATELET COUNT, AUTOMATED 185 10^3/uL (150-450)
[2025-05-13] MEDS ORDERED: QUET1TAB17 PO (15:15)
[2025-05-13] MEDS ORDERED: MONT10TA97 PO (15:15)
[2025-05-13] MEDS ORDERED: GABA-1490 PO (15:15)
[2025-05-13] MEDS ORDERED: HOME MED LIST COMPLETE! XX SCH (15:20)
[2025-05-13 15:33] LABS: AMPHETAMINES LEVEL URINE NEGATIVE (NEGATIVE); BARBITURATES URINE NEGATIVE (NEGATIVE); BENZODIAZEPINES URINE NEGATIVE (NEGATIVE); CANNABINOIDS URINE NEGATIVE (NEGATIVE); COCAINE METABOLITE URINE NEGATIVE (NEGATIVE); METHADONE URINE NEGATIVE (NEGATIVE); PHENCYCLIDINE URINE NEGATIVE (NEGATIVE)
[2025-05-13 15:34] LABS: OPIATES URINE NEGATIVE (NEGATIVE)
[2025-05-13 15:37] LABS: ALT/SGPT 198 U/L (7.0-40); AST/SGOT 219 U/L (<34); CALCIUM LEVEL 8.3 MG/DL (8.5-10.1); CARBON DIOXIDE LEVEL 27 MMOL/L (20-31); CHLORIDE LEVEL 106 MMOL/L (98-107); CREATININE FOR GFR 0.54 MG/DL (0.55-1.30); GLOMERULAR FILTRATION RATE > 90.0 (>51); POTASSIUM SERUM 4.0 MMOL/L (3.5-5.1); SALICYLATE LEVEL < 3.0 MG/DL (<30); SODIUM LEVEL 143 MMOL/L (136-145)
[2025-05-13 16:06] LABS: ETHYL ALCOHOL (ETHANOL) 0.356 % (0.000-0.010)
[2025-05-13] MEDS: OLANZapine ORAL DISINTEGRATING TAB 5MG PO ONE (18:48)
[2025-05-13 22:34] VITALS: BP 113/63; TEMP 98; O2SAT 96
== END 2025-05-13 22:37 | disposition home or self-care (01) ==
LOC: M ED 13:52
DX: F10.129 Alcohol abuse with intoxication, unspecified (principal); B20 Human immunodeficiency virus [HIV] disease; K76.0 Fatty (change of) liver, not elsewhere classified; F17.200 Nicotine dependence, unspecified, uncomplicated; Z98.61 Coronary angioplasty status; Z79.899 Other long term (current) drug therapy; Z91.89 Other specified personal risk factors, not elsewhere classified; Z88.1 Allergy status to other antibiotic agents; Z88.8 Allergy status to other drugs, medicaments and biological substances

== ENCOUNTER → 2025-05-20 | Outpatient (CLI) | payer MEDICARE, MEDICAID ==
[~2025-05-20] MED LIST changes: +GABA-1490 PO; +MONT10TA97 PO; +QUET1TAB17 PO
[2025-05-20 16:00] LABS: FREE T4 1.03 NG/DL (0.89-1.76)
[2025-05-28 23:56] LABS: CALPROTECTIN STOOL 79 mcg/g (<50)
[2025-05-30 03:08] LABS: PANCREATIC ELASTASE STOOL > 800 mcg/g (>200)
== END ==
LOC: M PLALAB 13:01
PROVIDERS: ATTEND Internal Medicine Gastroenterology
DX: K58.0 Irritable bowel syndrome with diarrhea (principal)

== ENCOUNTER 2025-06-10 08:51 | Day surgery (SDC) | payer MEDICARE, MEDICAID ==
[~2025-06-10] VITALS: Ht 172.7 cm; Wt 84.5 kg
[~2025-06-10 08:51] MED LIST changes: -IBUP-1022 PO; +IBUP600T42 PO; +LIDOCAINE 2% 100 MG/5 ML SDV (FOR ANES.) As Ordered ONE
[2025-06-10 09:49] VITALS: TEMP 97
[2025-06-10 10:05] VITALS: BP 125/61; O2SAT 100
== END 2025-06-10 10:15 | disposition home or self-care (01) ==
LOC: M OPP 08:51
PROVIDERS: ATTEND Internal Medicine Gastroenterology
DX: D12.4 Benign neoplasm of descending colon (principal); D12.5 Benign neoplasm of sigmoid colon; K57.30 Diverticulosis of large intestine without perforation or abscess without bleeding; K64.8 Other hemorrhoids; Z86.0100 Personal history of colon polyps, unspecified; Z21 Asymptomatic human immunodeficiency virus [HIV] infection status; Z88.1 Allergy status to other antibiotic agents; Z88.5 Allergy status to narcotic agent; Z91.048 Other nonmedicinal substance allergy status; Z79.899 Other long term (current) drug therapy; F17.210 Nicotine dependence, cigarettes, uncomplicated

== ENCOUNTER → 2025-07-23 | Outpatient (CLI) | payer MEDICARE, MEDICAID ==
[~2025-07-23] MED LIST changes: -LIDOCAINE 2% 100 MG/5 ML SDV (FOR ANES.) As Ordered ONE; +ZOLP10TA11 PO; -ZOLP10TA2 PO
== END ==
LOC: M OUTALCOH 07:26
PROVIDERS: ATTEND Psychiatry & Neurology Psychiatry
DX: F10.20 Alcohol dependence, uncomplicated (principal); F17.200 Nicotine dependence, unspecified, uncomplicated

== ENCOUNTER 2025-07-27 14:40 | Inpatient (IN) | payer MEDICARE, MEDICAID ==
[~2025-07-27] VITALS: Ht 172.7 cm; Wt 85.3 kg
[~2025-07-27 14:40] MED LIST changes: +AMOX500C PO; +AZIT-12 PO
[2025-07-27] MEDS: MORPHINE 4 MG/ML 1 ML VIAL IV ONE ×2 (15:42→19:35)
[2025-07-27] MEDS: ONDANSETRON 4MG/2ML VIAL IV ONE (15:42)
[2025-07-27] MEDS: NS (Normal Saline) 0.9% 1,000 ML IV ONE (15:42)
[2025-07-27] MEDS: GASTROGRAFIN SOLUTION 30ML PO SCH (15:43)
[2025-07-27 15:44] LABS: BASO # 0.0 10^3/uL (0.0-0.2); BASO % 0.4 % (0.0-1.0); EOS # 0.2 10^3/uL (0.0-0.5); EOS % 2.9 % (0.0-3.0); LYMPH # 2.9 10^3/uL (1.5-5.0); LYMPH % 38.2 % (24.0-44.0); MONO # 0.5 10^3/uL (0.0-0.8); MONO % 6.8 % (2.0-8.0); NEUTROPHILS # 3.9 10^3/uL (1.5-8.5); NEUTROPHILS % 51.6 % (36.0-66.0); PLATELET COUNT, AUTOMATED 223 10^3/uL (150-450)
[2025-07-27 15:56] LABS: INR 0.89
[2025-07-27 16:25] LABS: ALT/SGPT 20 U/L (7.0-40); AST/SGOT 23 U/L (<34); CALCIUM LEVEL 9.3 MG/DL (8.5-10.1); CARBON DIOXIDE LEVEL 29 MMOL/L (20-31); CHLORIDE LEVEL 105 MMOL/L (98-107); CREATININE FOR GFR 0.65 MG/DL (0.55-1.30); GLOMERULAR FILTRATION RATE > 90.0 (>51); POTASSIUM SERUM 4.0 MMOL/L (3.5-5.1); SODIUM LEVEL 143 MMOL/L (136-145)
[2025-07-27 16:42] LABS: KETONE, URINE AUTO RFX NEGATIVE (NEGATIVE); LEUKOCYTE ESTERASE UR AUTO RFX NEGATIVE (NEGATIVE); NITRITE, URINE AUTO RFX NEGATIVE (NEGATIVE); RBC, URINE AUTO RFX 0 /HPF (0-3); SQUAM EPITHELIAL CELL UR AURFX 0 /HPF (0-6); WBC, URINE AUTO RFX 0 /HPF (0-3)
[2025-07-27] MEDS ORDERED: ISOVUE-370 76% 100 ML VIAL As Ordered ONE (17:24)
[2025-07-27] MEDS: PIPERACILLIN/TAZOBACTAM SOD 4.5 GM in DEXTROSE 5% (D5W) ADV/MINI-BAG 50 ML IV ONE (19:45)
[2025-07-27] MEDS: LR 1,000 ML IV SCH (21:40)
[2025-07-27] MEDS ORDERED: ACET-683 PO (23:27)
[2025-07-27] MEDS ORDERED: THERTAB52 PO (23:27)
[2025-07-27] MEDS ORDERED: QUET100T2 PO (23:27)
[2025-07-27] MEDS ORDERED: FLUC150T9 PO (23:34)
[2025-07-27] MEDS ORDERED: HOME MED LIST COMPLETE! XX SCH (23:40)
[2025-07-28] MEDS: KETOROLAC 30 MG/ML 1 ML VIAL IV PRN (00:20)
[2025-07-28] MEDS: ONDANSETRON 4MG/2ML VIAL IV PRN (02:20)
[2025-07-28] MEDS: MORPHINE 4 MG/ML 1 ML VIAL IV ONE (03:10)
[2025-07-28 06:05] LABS: PLATELET COUNT, AUTOMATED 205 10^3/uL (150-450)
[2025-07-28 06:49] LABS: ALT/SGPT 19 U/L (7.0-40); AST/SGOT 18 U/L (<34); CALCIUM LEVEL 8.7 MG/DL (8.5-10.1); CARBON DIOXIDE LEVEL 28 MMOL/L (20-31); CHLORIDE LEVEL 111 MMOL/L (98-107); CREATININE FOR GFR 0.72 MG/DL (0.55-1.30); GLOMERULAR FILTRATION RATE > 90.0 (>51); MAGNESIUM LEVEL 1.7 MG/DL (1.8-2.4); POTASSIUM SERUM 4.2 MMOL/L (3.5-5.1); SODIUM LEVEL 145 MMOL/L (136-145)
[2025-07-28] MEDS ORDERED: HEPARIN SOD 5000 UNITS/ML 1 ML VIAL/SYRINGE SC SCH (09:00)
[2025-07-28] MEDS: MAG SULF 1GM/100ML (MAG RUN) 1 GM in IV 1 EA IV ONE (09:51)
[2025-07-28] MEDS: NS (Normal Saline) 0.9% 1,000 ML IV ONE (09:51)
[2025-07-28] MEDS: KETOROLAC 30 MG/ML 1 ML VIAL IV ONE (09:52)
[2025-07-28] MEDS: HYDROMORPHONE HCL 0.5 MG/0.5 ML SYRINGE IV ONE (09:53)
[2025-07-28] MEDS: ROSUVASTATIN 10 MG TAB PO SCH (09:53)
[2025-07-28] MEDS: GABAPENTIN 300 MG CAP PO SCH (09:54)
[2025-07-28] MEDS ORDERED: NALOXONE INJ 0.4 MG/1 ML VIAL IV PRN (11:35)
[2025-07-28] MEDS: MIDODRINE 5 MG TAB PO ONE (11:40)
[2025-07-28] MEDS: ACETAMINOPHEN 500 MG TAB PO SCH (12:26)
[2025-07-28 14:30] VITALS: BP 106/54; TEMP 97.2; O2SAT 61
[2025-07-28] MEDS: KETOROLAC 30 MG/ML 1 ML VIAL IV SCH (16:23)
[2025-07-28 20:18] VITALS: BP 119/69; TEMP 97.2; O2SAT 96
[2025-07-28] MEDS: LORazepam 1 MG TAB PO PRN (21:52)
[2025-07-29 01:32] VITALS: BP 119/69; TEMP 97.2; O2SAT 85
[2025-07-29] MEDS: CALCIUM CARBONATE 500 MG CHEW U/D PO ONE (02:08)
[2025-07-29 04:45] VITALS: BP 119/61; TEMP 97.5; O2SAT 90
[2025-07-29 12:24] VITALS: BP 135/75; TEMP 97.5; O2SAT 93
[2025-07-29] MEDS ORDERED: oxyCODONE 10 MG CR TAB PO ONE (14:15)
[2025-07-29] MEDS: LACTULOSE 20 GM/30 ML SYRUP UDC PO ONE (14:55)
[2025-07-29 17:11] VITALS: BP 125/68; TEMP 97.5; O2SAT 91
[2025-07-29 21:00] VITALS: BP 120/72; TEMP 97.3; O2SAT 93
[2025-07-30] MEDS: ALBUTEROL 90 MCG/ACT 8 GM HFA INHALER INH PRN (00:31)
[2025-07-30 06:42] VITALS: BP 119/71; TEMP 97.2; O2SAT 92
[2025-07-30 06:59] LABS: BASO # 0.0 10^3/uL (0.0-0.2); BASO % 0.3 % (0.0-1.0); EOS # 0.1 10^3/uL (0.0-0.5); EOS % 1.8 % (0.0-3.0); LYMPH # 2.0 10^3/uL (1.5-5.0); LYMPH % 29.7 % (24.0-44.0); MONO # 0.5 10^3/uL (0.0-0.8); MONO % 7.6 % (2.0-8.0); NEUTROPHILS # 4.1 10^3/uL (1.5-8.5); NEUTROPHILS % 60.5 % (36.0-66.0); PLATELET COUNT, AUTOMATED 186 10^3/uL (150-450)
[2025-07-30 07:37] LABS: CALCIUM LEVEL 8.7 MG/DL (8.5-10.1); CARBON DIOXIDE LEVEL 30 MMOL/L (20-31); CHLORIDE LEVEL 106 MMOL/L (98-107); CREATININE FOR GFR 0.63 MG/DL (0.55-1.30); GLOMERULAR FILTRATION RATE > 90.0 (>51); POTASSIUM SERUM 4.0 MMOL/L (3.5-5.1); SODIUM LEVEL 146 MMOL/L (136-145)
[2025-07-30] MEDS: DICLOFENAC EPOLAMINE 1.3% PATCH TOP SCH (08:18)
[2025-07-30 14:00] VITALS: BP 123/73; TEMP 97.5; O2SAT 91
[2025-07-30 21:37] VITALS: BP 118/58; TEMP 97.5; O2SAT 93
[2025-07-31 06:22] VITALS: BP 116/60; TEMP 97.3; O2SAT 94
[2025-07-31 08:32] VITALS: BP 117/91; TEMP 97.2; O2SAT 88
[2025-07-31] MEDS: BISACODYL 10 MG SUPP PR PRN (08:35)
[2025-07-31 14:00] VITALS: BP 117/86; TEMP 97.3; O2SAT 92
[2025-07-31 20:29] VITALS: BP 124/62; TEMP 97.3; O2SAT 93
[2025-08-01 05:13] VITALS: BP 123/61; TEMP 97; O2SAT 92
[2025-08-01 10:01] VITALS: O2SAT 94
[2025-08-01 10:21] VITALS: O2SAT 88
[2025-08-01] MEDS: LACTULOSE 20 GM/30 ML SYRUP UDC PO ONE (13:04)
[2025-08-01 14:14] VITALS: O2SAT 92
[2025-08-01] MEDS: FLEET ENEMA PR PRN (14:43)
[2025-08-01] MEDS ORDERED: OXYC-517 PO (16:14)
[2025-08-01] MEDS ORDERED: NARC1SPR NARES (16:17)
== END 2025-08-01 16:55 | disposition home or self-care (01) | DRG 977 ==
LOC: M ED 14:40 → M ED INP 14:41 → OBSVTOIN 07-28 13:29 → M MS5PR 07-28 14:40
PROVIDERS: ADMIT Student in an Organized Health Care Education/Training Program; ATTEND Student in an Organized Health Care Education/Training Program
DX: K52.9 Noninfective gastroenteritis and colitis, unspecified (principal); B20 Human immunodeficiency virus [HIV] disease; F17.210 Nicotine dependence, cigarettes, uncomplicated; L40.9 Psoriasis, unspecified; K76.0 Fatty (change of) liver, not elsewhere classified; F10.10 Alcohol abuse, uncomplicated; H52.4 Presbyopia; F41.9 Anxiety disorder, unspecified; F32.A Depression, unspecified; D69.6 Thrombocytopenia, unspecified; D72.819 Decreased white blood cell count, unspecified; E78.5 Hyperlipidemia, unspecified; M54.50 Low back pain, unspecified; Z79.899 Other long term (current) drug therapy; Z91.048 Other nonmedicinal substance allergy status; Z88.1 Allergy status to other antibiotic agents; Z88.8 Allergy status to other drugs, medicaments and biological substances

== ENCOUNTER → 2025-08-11 | Outpatient (REF) | payer MEDICARE, MEDICAID ==
[~2025-08-11] MED LIST changes: +ACET-683 PO; +FLUC150T9 PO; +NARC1SPR NARES; +OXYC-517 PO; +QUET100T2 PO; -ROSU10TA61 PO; +ROSU10TA90 PO; +THERTAB52 PO
== END ==
LOC: M SFHCPLAZ 17:19
PROVIDERS: ATTEND Internal Medicine Infectious Disease
DX: R19.7 Diarrhea, unspecified (principal)

== ENCOUNTER → 2025-08-25 | Outpatient (CLI) | payer MEDICARE, MEDICAID | LOC: M PLAIMG 11:53 | PROVIDERS: ATTEND Internal Medicine Infectious Disease | DX: K52.9 Noninfective gastroenteritis and colitis, unspecified (principal) ==

== ENCOUNTER → 2025-08-25 | Outpatient (CLI) | payer MEDICARE, MEDICAID ==
[2025-08-25 16:38] LABS: ALT/SGPT 55 U/L (7.0-40); AST/SGOT 36 U/L (<34); C REACTIVE PROTEIN QUANTITATIV < 0.50 MG/DL (<1.0); CALCIUM LEVEL 9.0 MG/DL (8.5-10.1); CARBON DIOXIDE LEVEL 25 MMOL/L (20-31); CHLORIDE LEVEL 106 MMOL/L (98-107); CHOLESTEROL LEVEL 173 MG/DL (<200); CHOLESTEROL RISK RATIO 3.63 (<5); CREATININE FOR GFR 0.54 MG/DL (0.55-1.30); GLOMERULAR FILTRATION RATE > 90.0 (>51); LDL CHOLESTEROL 71.4 MG/DL (<100); NON-HDL-C 125.4 MG/DL; POTASSIUM SERUM 4.1 MMOL/L (3.5-5.1); SODIUM LEVEL 138 MMOL/L (136-145); TRIGLYCERIDES LEVEL 270 MG/DL (<150)
[2025-08-25 16:40] LABS: TOTAL 25(OH) VITAMIN D 29.4 NG/ML (20.0-100.0)
== END ==
LOC: M PLALAB 12:57
PROVIDERS: ATTEND Internal Medicine Infectious Disease
DX: B20 Human immunodeficiency virus [HIV] disease (principal); E78.5 Hyperlipidemia, unspecified; E55.9 Vitamin D deficiency, unspecified; K52.9 Noninfective gastroenteritis and colitis, unspecified

== ENCOUNTER 2025-09-01 08:15 | Day surgery (SDC) | payer MEDICARE, MEDICAID ==
[~2025-09-01] VITALS: Ht 172.7 cm; Wt 86.1 kg
[2025-09-01] MEDS ORDERED: GLYCOPYRROLATE INJ 0.2 MG/ML 2 ML VIAL As Ordered ONE (09:31)
[2025-09-01] MEDS ORDERED: LIDOCAINE 2% 100 MG/5 ML SDV (FOR ANES.) As Ordered ONE (09:48)
[2025-09-01 09:59] VITALS: TEMP 98.6
[2025-09-01 10:20] VITALS: BP 103/52; O2SAT 98
== END 2025-09-01 10:30 | disposition home or self-care (01) ==
LOC: M OPP 08:15
PROVIDERS: ATTEND Internal Medicine Gastroenterology
DX: K57.30 Diverticulosis of large intestine without perforation or abscess without bleeding (principal); K64.8 Other hemorrhoids; R93.3 Abnormal findings on diagnostic imaging of other parts of digestive tract; R10.84 Generalized abdominal pain
CPT/HCPCS: 45380; 88305; J1596

== ENCOUNTER 2025-09-03 08:40 | Outpatient (RCR) | payer MEDICARE, MEDICAID | END 2025-09-07 | LOC: M OUTALCOH 08:40 | PROVIDERS: ATTEND Psychiatry & Neurology Psychiatry | DX: F10.20 Alcohol dependence, uncomplicated (principal); F17.200 Nicotine dependence, unspecified, uncomplicated ==

== ENCOUNTER → 2025-09-05 | Outpatient (REF) | payer MEDICARE, MEDICAID | LOC: M LAB REF 07:00 | PROVIDERS: ATTEND Internal Medicine Infectious Disease | DX: R19.7 Diarrhea, unspecified (principal); R10.813 Right lower quadrant abdominal tenderness ==

== ENCOUNTER 2025-09-29 08:56 | Emergency (ER) | payer MEDICARE, MEDICAID ==
[2025-09-29 10:09] LABS: BASO # 0.0 10^3/uL (0.0-0.2); BASO % 0.4 % (0.0-1.0); EOS # 0.2 10^3/uL (0.0-0.5); EOS % 1.6 % (0.0-3.0); LYMPH # 3.8 10^3/uL (1.5-5.0); LYMPH % 33.5 % (24.0-44.0); MONO # 0.7 10^3/uL (0.0-0.8); MONO % 6.0 % (2.0-8.0); NEUTROPHILS # 6.6 10^3/uL (1.5-8.5); NEUTROPHILS % 58.2 % (36.0-66.0); PLATELET COUNT, AUTOMATED 264 10^3/uL (150-450)
[2025-09-29 10:17] LABS: C REACTIVE PROTEIN QUANTITATIV < 0.50 MG/DL (<1.0)
[2025-09-29 10:18] LABS: ALT/SGPT 30 U/L (7.0-40); AST/SGOT 39 U/L (<34)
[2025-09-29] MEDS ORDERED: ISOVUE-370 76% 100 ML VIAL As Ordered ONE (10:28)
[2025-09-29] MEDS: ONDANSETRON 4MG/2ML VIAL IV ONE (10:30)
[2025-09-29] MEDS: NS (Normal Saline) 0.9% 1,000 ML IV ONE (10:30)
[2025-09-29] MEDS: MORPHINE 4 MG/ML 1 ML VIAL IV ONE ×2 (10:30→14:35)
[2025-09-29 10:41] LABS: CK-MB VALUE MASS < 1.0 NG/ML (<3.6)
[2025-09-29 11:02] LABS: CPK CREATINE PHOSPHOKINASE 91 U/L (34-145)
[2025-09-29] MEDS: DICYCLOMINE 10 MG CAP PO ONE (12:41)
[2025-09-29] MEDS ORDERED: DICY-61 PO (14:58)
[2025-09-29] MEDS ORDERED: HYDR-3713 PO (14:58)
[2025-09-29] MEDS ORDERED: PROM50TA4 PO (14:58)
[2025-09-29 15:00] VITALS: BP 101/58; TEMP 98.3; O2SAT 96
== END 2025-09-29 15:10 | disposition home or self-care (01) ==
LOC: M ED 10:15
DX: R10.84 Generalized abdominal pain (principal); B20 Human immunodeficiency virus [HIV] disease; I10 Essential (primary) hypertension; K57.92 Diverticulitis of intestine, part unspecified, without perforation or abscess without bleeding; Z87.440 Personal history of urinary (tract) infections; R16.0 Hepatomegaly, not elsewhere classified; K76.0 Fatty (change of) liver, not elsewhere classified; Z79.899 Other long term (current) drug therapy; Z88.1 Allergy status to other antibiotic agents; Z88.5 Allergy status to narcotic agent; Z91.89 Other specified personal risk factors, not elsewhere classified
CPT/HCPCS: 74177; 80047; 80076; 82550; 82553; 83605; 83690; 84484; 85025; 85652; 86140; 93005; 96361; 96374; 96375; 96376; 99285; J2405; J3360; Q9967

== ENCOUNTER 2025-10-01 13:21 | Emergency (ER) | payer MEDICARE, MEDICAID ==
[~2025-10-01] VITALS: Ht 172.7 cm; Wt 86.0 kg
[~2025-10-01 13:21] MED LIST changes: +DICY-61 PO; +HYDR-3713 PO; +PROM50TA4 PO
[2025-10-01 14:03] LABS: BASO # 0.0 10^3/uL (0.0-0.2); BASO % 0.4 % (0.0-1.0); EOS # 0.2 10^3/uL (0.0-0.5); EOS % 2.6 % (0.0-3.0); LYMPH # 3.5 10^3/uL (1.5-5.0); LYMPH % 42.2 % (24.0-44.0); MONO # 0.4 10^3/uL (0.0-0.8); MONO % 5.3 % (2.0-8.0); NEUTROPHILS # 4.1 10^3/uL (1.5-8.5); NEUTROPHILS % 49.4 % (36.0-66.0); PLATELET COUNT, AUTOMATED 246 10^3/uL (150-450)
[2025-10-01 14:31] LABS: ALT/SGPT 30 U/L (7.0-40); AST/SGOT 36 U/L (<34)
[2025-10-01 14:50] LABS: ETHYL ALCOHOL (ETHANOL) 0.004 % (0.000-0.010)
[2025-10-01] MEDS: HALOPERIDOL LACTATE 5 MG/ML VIAL IV ONE (15:25)
[2025-10-01] MEDS: NS (Normal Saline) 0.9% 1,000 ML IV ONE (15:25)
[2025-10-01 15:54] LABS: INR 0.92
[2025-10-01] MEDS: IPRATROPIUM 0.5 MG/ALBUTEROL 2.5 MG INH SOL UD 3 ML NEB ONE (15:56)
[2025-10-01] MEDS ORDERED: ISOVUE-370 76% 100 ML VIAL As Ordered ONE (16:48)
[2025-10-01] MEDS ORDERED: MORPHINE 4 MG/ML 1 ML VIAL IV ONE (18:00)
[2025-10-01] MEDS ORDERED: HYDR-3713 PO (18:11)
[2025-10-01] MEDS ORDERED: PROM50TA4 PO (18:11)
[2025-10-01] MEDS ORDERED: DICY-61 PO (18:11)
[2025-10-01] MEDS: HYDROmorphone 2 MG TAB PO ONE (18:15)
[2025-10-01] MEDS ORDERED: HOME MED LIST COMPLETE! XX SCH (18:15)
[2025-10-01] MEDS: ACETAMINOPHEN *IV* 1,000 MG in IV 1 EA IV ONE (18:16)
[2025-10-01] MEDS: KETOROLAC 30 MG/ML 1 ML VIAL IV ONE (19:13)
[2025-10-01] MEDS ORDERED: KETO-204 PO (20:05)
[2025-10-01 20:06] VITALS: O2SAT 97
[2025-10-01 20:08] VITALS: BP 106/70; TEMP 97.8
[2025-10-12] MEDS ORDERED: COLA100C5 PO (22:33)
[2025-10-29] MEDS ORDERED: PANT40TA29 PO (21:03)
[2025-10-29] MEDS ORDERED: B-1100TA2 PO (21:03)
[2025-10-29] MEDS ORDERED: SUCR1TAB56 PO (21:03)
[2025-10-29] MEDS ORDERED: FAMO10TA50 PO (21:03)
[2025-10-29] MEDS ORDERED: D-40TAB2 PO (21:06)
[2025-10-29] MEDS ORDERED: VITA500C24 PO (21:06)
[2025-11-01] MEDS ORDERED: OXYC-517 PO (10:24)
[2025-11-01] MEDS ORDERED: MIRA3350 PO (10:24)
== END 2025-10-01 20:14 | disposition home or self-care (01) ==
LOC: M ED 13:21
DX: R10.9 Unspecified abdominal pain (principal); B20 Human immunodeficiency virus [HIV] disease; K57.92 Diverticulitis of intestine, part unspecified, without perforation or abscess without bleeding; F17.200 Nicotine dependence, unspecified, uncomplicated; Z79.899 Other long term (current) drug therapy; Z88.1 Allergy status to other antibiotic agents; Z88.5 Allergy status to narcotic agent; Z91.89 Other specified personal risk factors, not elsewhere classified
CPT/HCPCS: 74021; 74174; 76700; 80047; 80076; 82077; 83605; 83690; 83880; 85025; 85610; 85730; 94640; 96361; 96365; 96366; 96375; 99284; J0134; J1630; J1885; Q9967

== ENCOUNTER 2025-10-06 07:49 | Outpatient (RCR) | payer MEDICARE, MEDICAID ==
[~2025-10-06 07:49] MED LIST changes: +KETO-204 PO
== END 2025-10-08 ==
LOC: M OUTALCOH 07:49
PROVIDERS: ATTEND Psychiatry & Neurology Psychiatry
DX: F10.20 Alcohol dependence, uncomplicated (principal); F17.200 Nicotine dependence, unspecified, uncomplicated

== ENCOUNTER → 2025-10-07 | Outpatient (CLI) | payer MEDICARE, MEDICAID ==
[2025-10-07 13:24] LABS: BASO # 0.1 10^3/uL (0.0-0.2); BASO % 0.5 % (0.0-1.0); EOS # 0.2 10^3/uL (0.0-0.5); EOS % 2.0 % (0.0-3.0); LYMPH # 4.0 10^3/uL (1.5-5.0); LYMPH % 37.1 % (24.0-44.0); MONO # 0.8 10^3/uL (0.0-0.8); MONO % 7.6 % (2.0-8.0); NEUTROPHILS # 5.7 10^3/uL (1.5-8.5); NEUTROPHILS % 52.6 % (36.0-66.0); PLATELET COUNT, AUTOMATED 303 10^3/uL (150-450)
[2025-10-07 13:28] LABS: APPEARANCE, URINE CLEAR (CLEAR); BACTERIA, URINE AUTO NEGATIVE (NEGATIVE); BILIRUBIN, URINE AUTO NEGATIVE (NEGATIVE); BLOOD, URINE BLOOD NEGATIVE (NEGATIVE); GLUCOSE, URINE (UA) AUTO NEGATIVE (NEGATIVE); KETONE, URINE AUTO NEGATIVE (NEGATIVE); LEUKOCYTE ESTERASE, URINE AUTO NEGATIVE (NEGATIVE); NITRITE, URINE AUTO NEGATIVE (NEGATIVE); PROTEIN, URINE AUTO NEGATIVE (NEGATIVE); RBC, URINE AUTO 0 /HPF (0-3); SPECIFIC GRAVITY URINE AUTO 1.004 (1.002-1.035); SQUAMOUS EPITHELIAL CELL UR AU 0 /HPF (0-6); UROBILINOGEN, URINE AUTO 0.2 mg/dL (0.0-2.0); WBC, URINE AUTO 2 /HPF (0-3)
[2025-10-07 14:55] LABS: ALT/SGPT 22 U/L (7.0-40); AST/SGOT 26 U/L (<34); C REACTIVE PROTEIN QUANTITATIV < 0.50 MG/DL (<1.0); CALCIUM LEVEL 9.5 MG/DL (8.5-10.1); CARBON DIOXIDE LEVEL 28 MMOL/L (20-31); CHLORIDE LEVEL 106 MMOL/L (98-107); CREATININE FOR GFR 0.64 MG/DL (0.55-1.30); GLOMERULAR FILTRATION RATE > 90.0 (>51); POTASSIUM SERUM 4.4 MMOL/L (3.5-5.1); SODIUM LEVEL 140 MMOL/L (136-145)
== END ==
LOC: M WUC 09:00
PROVIDERS: ATTEND Nurse Practitioner Family
DX: R10.31 Right lower quadrant pain (principal); R14.0 Abdominal distension (gaseous)